=== PATIENT | female | born 1940 | race American Indian/Alaskan Native ===

== ENCOUNTER 2022-03-25 18:07 | Inpatient (IN) | payer MEDICARE ==
[2022-03-25] MEDS ORDERED: SODIUM CHLORIDE 0.9% 1000 ML 1,000 ML IV ONE (18:17)
--- NOTE | 2022-03-25 18:23 | Emergency Department Report ---
HPI - General Time Seen by Provider: 03/25/22 18:17 - HPI HPI: 81-year-old -Prydeinig female presents to the emergency department via EMS from home with altered mental status and concern for possible stroke. The patient was last known to be at her baseline last night around 9 PM when she was talking to her son. They did a forced entry around 4:45 PM and found her laying on the ground unresponsive. At the time of arrival to the emergency department she is awake but unresponsive with a right-sided gaze preference. She is seen moving her extremities to some extent but not following commands. EMS said that she initially had a blood sugar of 500. She is known to be a diabetic. She has never been to this emergency department previously and is currently a poor his ronny secondary to her current medical conditions. ED Review of Systems ROS: Stated complaint: STROKE/HYPERGLYCEMIA Other details as noted in HPI Comment: Unobtainable due to pts medical conditions Physical Exam - Physical Exam Physical Exam: GENERAL: The patient is ill-appearing and unresponsive. HENT: Normocephalic. Atraumatic. Patient has moist mucous membranes. EYES: Right-sided gaze preference. Pupils equal reactive to light bilaterally. NECK: Supple. Trachea is midline. CHEST/LUNGS: Clear to auscultation. There is no respiratory distress noted. HEART/CARDIOVASCULAR: Regular. There is mild to moderate tachycardia. There is no murmur. ABDOMEN: Abdomen is soft, nontender. Patient has normal bowel sounds. There is no abdominal distention. SKIN: Skin is warm and dry. NEURO: Patient is awake but otherwise confused and not following commands. MUSCULOSKELETAL: There is no obvious deformity. ED Course - Consultations Consultation #1: 03/25/22 19:05 I spoke to the telemetry neurologist on-call, Dr. Mikaela Cardenas, and her full evaluation and recommendations are in the chart. She agrees that the patient is not a tPA candidate as last known well time was 9 PM last night. The patient is still within the window for thrombectomy and she agrees with the plan for CT angiography of the head and neck. If the patient has a large vessel occlusion, then the patient will need to be transferred for thrombectomy. If no LVO, then the patient can be admitted to this hospital. If no large vessel occlusion, the differential also includes seizure, metabolic encephalopathy, versus other. ED Medical Decision Making - Lab Data Result diagrams: 03/25/22 18:24 03/25/22 20:02 Lab Results 03/25/22 03/25/22 03/25/22 Range/Units 18:24 18:24 18:24 WBC 14.0 H (4.5-11.0) K/mm3 RBC 5.15 H (3.65-5.03) M/mm3 Hgb 13.6 (10.1-14.3) gm/dl Hct 41.1 (30.3-42.9) % MCV 80 (79-97) fl MCH 26 L (28-32) pg MCHC 33 (30-34) % RDW 18.4 H (13.2-15.2) % Plt Count 268 (140-440) K/mm3 Lymph % (Auto) 5.9 L (13.4-35.0) % Drew % (Auto) 3.5 (0.0-7.3) % Eos % (Auto) 0.0 (0.0-4.3) % Baso % (Auto) 0.8 (0.0-1.8) % Lymph # (Auto) 0.8 L (1.2-5.4) K/mm3 Drew # (Auto) 0.5 (0.0-0.8) K/mm3 Eos # (Auto) 0.0 (0.0-0.4) K/mm3 Baso # (Auto) 0.1 (0.0-0.1) K/mm3 Seg Neutrophils % 89.8 H (40.0-70.0) % Seg Neutrophils # 12.6 H (1.8-7.7) K/mm3 PT 14.1 (12.2-14.9) Sec. INR 0.98 (0.87-1.13) APTT 24.7 (24.2-36.6) Sec. Thrombin Time 16.8 (15.1-19.6) Sec. VBG pH (7.320-7.420) Sodium 138 (137-145) mmol/L Potassium 4.6 (3.6-5.0) mmol/L Chloride 97.1 L (98-107) mmol/L Carbon Dioxide 14 L (22-30) mmol/L Anion Gap 32 mmol/L BUN 23 H (7-17) mg/dL Creatinine 1.9 H (0.6-1.2) mg/dL Estimated GFR 25 ml/min BUN/Creatinine Ratio 12 % Glucose 552 H* (65-100) mg/dL Ketones Quantitative (Negative) Calcium 11.1 H (8.4-10.2) mg/dL Phosphorus (2.5-4.5) mg/dL Magnesium (1.7-2.3) mg/dL Total Bilirubin 0.80 (0.1-1.2) mg/dL AST 32 (5-40) units/L ALT 17 (7-56) units/L Alkaline Phosphatase 72 (35-129) units/L Ammonia (25-60) umol/L Total Creatine Kinase 331 H (30-135) units/L CK-MB (CK-2) 4.4 H (0.0-4.0) ng/mL CK-MB (CK-2) Rel Index 1.3 (0-4) Troponin T 0.068 H (0.00-0.029) ng/mL Total Protein 7.6 (6.3-8.2) g/dL Albumin 4.6 (3.9-5) g/dL Albumin/Globulin Ratio 1.5 % Triglycerides 190 H (2-149) mg/dL Cholesterol 189 (50-199) mg/dL LDL Cholesterol Direct 79 (50-130) mg/dL HDL Cholesterol 94 H (40-59) mg/dL Cholesterol/HDL Ratio 2.01 % Plasma/Serum Alcohol (0-0.07) % Blood Type Antibody Screen 03/25/22 03/25/22 03/25/22 Range/Units 18:24 18:24 18:24 WBC (4.5-11.0) K/mm3 RBC (3.65-5.03) M/mm3 Hgb (10.1-14.3) gm/dl Hct (30.3-42.9) % MCV (79-97) fl MCH (28-32) pg MCHC (30-34) % RDW (13.2-15.2) % Plt Count (140-440) K/mm3 Lymph % (Auto) (13.4-35.0) % Drew % (Auto) (0.0-7.3) % Eos % (Auto) (0.0-4.3) % Baso % (Auto) (0.0-1.8) % Lymph # (Auto) (1.2-5.4) K/mm3 Drew # (Auto) (0.0-0.8) K/mm3 Eos # (Auto) (0.0-0.4) K/mm3 Baso # (Auto) (0.0-0.1) K/mm3 Seg Neutrophils % (40.0-70.0) % Seg Neutrophils # (1.8-7.7) K/mm3 PT (12.2-14.9) Sec. INR (0.87-1.13) APTT (24.2-36.6) Sec. Thrombin Time (15.1-19.6) Sec. VBG pH (7.320-7.420) Sodium (137-145) mmol/L Potassium (3.6-5.0) mmol/L Chloride (98-107) mmol/L Carbon Dioxide (22-30) mmol/L Anion Gap mmol/L BUN (7-17) mg/dL Creatinine (0.6-1.2) mg/dL Estimated GFR ml/min BUN/Creatinine Ratio % Glucose (65-100) mg/dL Ketones Quantitative (Negative) Calcium (8.4-10.2) mg/dL Phosphorus (2.5-4.5) mg/dL Magnesium (1.7-2.3) mg/dL Total Bilirubin (0.1-1.2) mg/dL AST (5-40) units/L ALT (7-56) units/L Alkaline Phosphatase (35-129) units/L Ammonia 12.0 L (25-60) umol/L Total Creatine Kinase (30-135) units/L CK-MB (CK-2) (0.0-4.0) ng/mL CK-MB (CK-2) Rel Index (0-4) Troponin T (0.00-0.029) ng/mL Total Protein (6.3-8.2) g/dL Albumin (3.9-5) g/dL Albumin/Globulin Ratio % Triglycerides (2-149) mg/dL Cholesterol (50-199) mg/dL LDL Cholesterol Direct (50-130) mg/dL HDL Cholesterol (40-59) mg/dL Cholesterol/HDL Ratio % Plasma/Serum Alcohol < 0.01 (0-0.07) % Blood Type A POSITIVE Antibody Screen Negative 03/25/22 03/25/22 03/25/22 Range/Units 20:02 20:02 20:02 WBC (4.5-11.0) K/mm3 RBC (3.65-5.03) M/mm3 Hgb (10.1-14.3) gm/dl Hct (30.3-42.9) % MCV (79-97) fl MCH (28-32) pg MCHC (30-34) % RDW (13.2-15.2) % Plt Count (140-440) K/mm3 Lymph % (Auto) (13.4-35.0) % Drew % (Auto) (0.0-7.3) % Eos % (Auto) (0.0-4.3) % Baso % (Auto) (0.0-1.8) % Lymph # (Auto) (1.2-5.4) K/mm3 Drew # (Auto) (0.0-0.8) K/mm3 Eos # (Auto) (0.0-0.4) K/mm3 Baso # (Auto) (0.0-0.1) K/mm3 Seg Neutrophils % (40.0-70.0) % Seg Neutrophils # (1.8-7.7) K/mm3 PT (12.2-14.9) Sec. INR (0.87-1.13) APTT (24.2-36.6) Sec. Thrombin Time (15.1-19.6) Sec. VBG pH 7.276 L (7.320-7.420) Sodium (137-145) mmol/L Potassium (3.6-5.0) mmol/L Chloride (98-107) mmol/L Carbon Dioxide (22-30) mmol/L Anion Gap mmol/L BUN (7-17) mg/dL Creatinine (0.6-1.2) mg/dL Estimated GFR ml/min BUN/Creatinine Ratio % Glucose (65-100) mg/dL Ketones Quantitative Moderate (Negative) Calcium (8.4-10.2) mg/dL Phosphorus 4.20 (2.5-4.5) mg/dL Magnesium 1.40 L (1.7-2.3) mg/dL Total Bilirubin (0.1-1.2) mg/dL AST (5-40) units/L ALT (7-56) units/L Alkaline Phosphatase (35-129) units/L Ammonia (25-60) umol/L Total Creatine Kinase (30-135) units/L CK-MB (CK-2) (0.0-4.0) ng/mL CK-MB (CK-2) Rel Index (0-4) Troponin T (0.00-0.029) ng/mL Total Protein (6.3-8.2) g/dL Albumin (3.9-5) g/dL Albumin/Globulin Ratio % Triglycerides (2-149) mg/dL Cholesterol (50-199) mg/dL LDL Cholesterol Direct (50-130) mg/dL HDL Cholesterol (40-59) mg/dL Cholesterol/HDL Ratio % Plasma/Serum Alcohol (0-0.07) % Blood Type Antibody Screen 03/25/22 Range/Units 20:02 WBC (4.5-11.0) K/mm3 RBC (3.65-5.03) M/mm3 Hgb (10.1-14.3) gm/dl Hct (30.3-42.9) % MCV (79-97) fl MCH (28-32) pg MCHC (30-34) % RDW (13.2-15.2) % Plt Count (140-440) K/mm3 Lymph % (Auto) (13.4-35.0) % Drew % (Auto) (0.0-7.3) % Eos % (Auto) (0.0-4.3) % Baso % (Auto) (0.0-1.8) % Lymph # (Auto) (1.2-5.4) K/mm3 Drew # (Auto) (0.0-0.8) K/mm3 Eos # (Auto) (0.0-0.4) K/mm3 Baso # (Auto) (0.0-0.1) K/mm3 Seg Neutrophils % (40.0-70.0) % Seg Neutrophils # (1.8-7.7) K/mm3 PT (12.2-14.9) Sec. INR (0.87-1.13) APTT (24.2-36.6) Sec. Thrombin Time (15.1-19.6) Sec. VBG pH (7.320-7.420) Sodium 138 (137-145) mmol/L Potassium 4.6 (3.6-5.0) mmol/L Chloride 98.0 (98-107) mmol/L Carbon Dioxide 14 L (22-30) mmol/L Anion Gap 31 mmol/L BUN 24 H (7-17) mg/dL Creatinine 2.0 H (0.6-1.2) mg/dL Estimated GFR 24 ml/min BUN/Creatinine Ratio 12 % Glucose 536 H* (65-100) mg/dL Ketones Quantitative (Negative) Calcium 10.5 H (8.4-10.2) mg/dL Phosphorus (2.5-4.5) mg/dL Magnesium (1.7-2.3) mg/dL Total Bilirubin (0.1-1.2) mg/dL AST (5-40) units/L ALT (7-56) units/L Alkaline Phosphatase (35-129) units/L Ammonia (25-60) umol/L Total Creatine Kinase (30-135) units/L CK-MB (CK-2) (0.0-4.0) ng/mL CK-MB (CK-2) Rel Index (0-4) Troponin T (0.00-0.029) ng/mL Total Protein (6.3-8.2) g/dL Albumin (3.9-5) g/dL Albumin/Globulin Ratio % Triglycerides (2-149) mg/dL Cholesterol (50-199) mg/dL LDL Cholesterol Direct (50-130) mg/dL HDL Cholesterol (40-59) mg/dL Cholesterol/HDL Ratio % Plasma/Serum Alcohol (0-0.07) % Blood Type Antibody Screen - EKG Data -: EKG Interpreted by Me EKG shows normal: axis, intervals (Slightly prolonged CT interval), QRS complexes, ST-T waves (Nonspecific ST-T waves) Rate: tachycardia (123 bpm) - EKG Data When compared to previous EKG there are: previous EKG unavailable Interpretation: other (Ectopic atrial tachycardia 123 bpm, normal axis, slightly prolonged CT interval, nonspecific ST-T waves. No ST elevation [place].) - Radiology Data Radiology results: report reviewed, image reviewed interpreted by me: Chest x-ray does not show any acute process. There are no pleural effusions, obvious pneumonia and there is no pneumothorax. CT head/brain wo con INDICATION / CLINICAL INFORMATION: 81 years Female; Stroke symptoms. TECHNIQUE: Routine CT head without contrast. All CT scans at this location are performed using CT dose reduction for ALARA by means of automated exposure control. COMPARISON: None. 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 There is prominence of the ventricular system which may be out of proportion to the degree of cerebral atrophy with relative effacement of the sulci near the vertex and correlation be needed regarding normal pressure hydrocephalus. There is no clear CT evidence of acute intracranial hemorrhage or significant mass effect. ORBITS: No significant abnormality of visualized orbits. SINUSES / MASTOIDS: No significant abnormality in the visualized paranasal sinuses or mastoid air cells. CRANIOCERVICAL JUNCTI ON: No significant abnormality. ADDITIONAL FINDINGS: None. IMPRESSION: 1. 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 2. There is prominence of the ventricular system which may be mildly out of proportion to the degree of cerebral atrophy and correlation would be needed regarding normal pressure hydrocephalus as well as given history of unspecified "stroke symptoms". CT angio neck INDICATION / CLINICAL INFORMATION: 81 years Female; stroke sx 100ml of [id number]. TECHNIQUE: Thin cut axial images obtained through the head during IV bolus contrast administration. Sagittal, coronal, and 3 plane MIP reconstructions performed by the technologist. NASCET type criteria used evaluate stenoses. All CT scans at this location are performed using CT dose reduction for ALARA by means of automated exposure control. COMPARISON: None available. FINDINGS: CAROTID ARTERIES: There are small foci of atherosclerotic calcification involving carotid bifurcations bilaterally. However, there is no significant stenosis involving cervical carotid arteries by NASCET criteria. VERTEBRAL ARTERIES: The vertebral arteries also demonstrate appropriate caliber without significant focal narrowing at. ARCH: There is no significant stenosis involving origins of the arch vessels. ADDITIONAL FINDINGS: Remainder of the surrounding soft tissues are grossly normal. IMPRESSION: There is no CTA evidence of significant stenosis involving cervical carotid or vertebral arteries by NASCET criteria. CT angio head INDICATION / CLINICAL INFORMATION: 81 years Female; stroke sx 100ml of [id number]. TECHNIQUE: Thin cut axial images obtained through the head during IV bolus contrast administration. Sagittal, coronal, and 3 plane MIP reconstructions performed by the technologist. NASCET type criteria used evaluate stenoses. Automated exposure control utilized for radiation reduction purposes. COMPARISON: None available. FINDINGS: INTERNAL CAROTID ARTERIES: There is no significant stenosis involving intracranial ICAs by NASCET criteria. VERTEBROBASILAR SYSTEM: The vertebrobasilar system also demonstrate appropriate caliber without significant focal narrowing CEREBRAL ARTERIES: The proximal cerebral arteries and adjacent branches appear to demonstrate appropriate caliber without evidence of significant focal stenosis or large vessel occlusion. ANEURYSM: None identified. ADDITIONAL FINDINGS: The right transverse and sigmoid sinuses as well as the superior sagittal sinuses opacify with contrast. There is nonopacification of the left sigmoid sinus which may reflect developmental variant or possibly related to the timing bolus; correlation be needed regarding any concern for thrombus given history of unspecified "stroke symptoms". IMPRESSION: There is no CTA evidence of large vessel occlusion amenable to endovascular treatment and correlation be needed regarding history of unspecified "stroke symptoms". There is nonopacification of the left sigmoid sinus as described. - Medical Decision Making This patient presents to the emergency department via EMS from home after she was found unresponsive. Last known well time was about 9 PM last night. Therefore, the patient is not a tPA candidate but still could be a thrombectomy candidate if there is evidence of an LVO. On examination she has a right-sided gaze preference, is aphasic, not following commands. A code stroke was initiated and the patient was seen by the telemedicine neurologist Dr. Cardenas, who is full recommendations are in the chart. CT head without contrast does not show any hemorrhage, large vessel occlusion, or any other acute process. CT angiography of the head and neck also did not show any acute process including any large vessel occlusion, high-grade stenosis patient's labs are consistent with diabetic ketoacidosis with a blood sugar of about 550, pH of 7.27, bicarb of 14, and labs also show renal insufficiency with a GFR of 25 and a slightly elevated troponin level. The patient has been given IV fluid resuscitation and started on an insulin drip. EKG does not show any morphology consistent with ST elevation myocardial infarction. Chest x-ray does not show any pneumonia, pleural effusions, pneumothorax, widened mediastinum, or any other acute process. I spoke to the etymology teacher on-call, Dr. Charles Head, who is excepted the patient to the ICU. The patient will be admitted by Dr. Zhao. Critical Care Time: Yes Critical care time in (mins) excluding proc time.: 35 Critical care attestation.: If time is entered above; I have spent that time in minutes in the direct care of this critically ill patient, excluding procedure time. Critical care time was spent on this patient in doing her initial evaluation, multiple reevaluations, ordering and interpretation of labs and imaging, discussion with the telemedicine neurologist, IV fluid resuscitation, insulin drip for DKA. Critical Care Time: 35 minutes ED Disposition Clinical Impression: Metabolic encephalopathy, Stroke-like symptoms, Renal insufficiency, Elevated troponin Diabetic ketoacidosis Qualifiers: Diabetes mellitus type: type 1 Diabetes mellitus complication detail: without coma Qualified Code(s): E10.10 - Type 1 diabetes mellitus with ketoacidosis without coma Hypertension Qualifiers: Hypertension type: primary hypertension Qualified Code(s): I10 - Essential (primary) hypertension Disposition: 09 ADMITTED INPATIENT Is pt being admited?: Yes Condition: Serious Instructions: Diabetic Ketoacidosis (ED), Hypertension (ED) Time of Disposition: 22:01
--- NOTE | 2022-03-25 18:55 | Cat Scan Report ---
CT head/brain wo con INDICATION / CLINICAL INFORMATION: 81 years Female; Stroke symptoms. TECHNIQUE: Routine CT head without contrast. All CT scans at this location are performed using CT dos e reduction for ALARA by means of automated exposure control. COMPARISON: None. 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 There is prominence of the ventricular system which may be out of proportio n to the degree of cerebral atrophy with relative effacement of the sulci near the vertex and correla tion be needed regarding normal pressure hydrocephalus. There is no clear CT evidence of acute intrac ranial hemorrhage or significant mass effect. ORBITS: No significant abnormality of visualized orbits. SINUSES / MASTOIDS: No significant abnormality in the visualized paranasal sinuses or mastoid air toi ls. CRANIOCERVICAL JUNCTION: No significant abnormality. ADDITIONAL FINDINGS: None. IMPRESSION: 1. 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 2. There is prominence of the ventricular system which may be mildly out of proportion to the degree of cerebral atrophy and correlation would be needed regarding normal pressure hydrocephalus as well a s given history of unspecified "stroke symptoms". Signer Name: Grzegorz Quispe MD Signed: 03/25/2022 6:50 PM Workstation Name: [id number]
--- NOTE | 2022-03-25 19:03 | Emergency Department Report ---
Blank Doc - Documentation Documentation: [facility] Consult Note # Demographics Consult Type: Acute Stroke Level 2 (4.5-24 hrs) Patient Location: Emergency Room First Name: Justine Last Name: Rasta Gender: Female Facility: [facility] Time of Initial Page (Eastern Time): 03/25/2022, 18:20 Time of Return Call ( Time): 03/25/2022, 18:20 # HPI History: pt last well last night around 2100, found today with right hahn gaze and weakness # Scores Level of Consciousness 1a: [0] = Alert; keenly responsive LOC Questions 1b: [2] = Answers neither correctly LOC Commands 1c: [2] = Performs neither correctly Best Gaze 2: [2] = Forced deviation Visual 3: [0] = No visual loss Facial Palsy 4: [2] = Partial paralysis Motor Arm Left 5a: [4] = No movement Motor Arm Right 5b: [2] = Some effort against gravity Motor Leg Left 6a: [4] = No movement Motor Leg Right 6b: [4] = No movement Limb Ataxia 7: [0] = Absent Sensory 8: [2] = Severe to total sensory loss Best Language 9: [3] = Mute Dysarthria 10: [2] = Severe dysarthria Extinction and Inattention 11: [2] = Profound margareth-inattention or extinction to more than one modality NIHSS Total: 31 # Data Head CT: no bleed preliminarily reviewed by me, please refer to radiology read for official reading CTA Head: pending # Assessment Impression: Ischemic Stroke (Acute) mimic possible such as seizure or otehr # Plan Thrombolytic/Intervention: Possible IA candidate Thrombolytic Exclusion: > 4.5 hours Possible IA Candidate: signs and symptoms of LVO CTA pending Imaging: (urgency: STAT): CT Angiogram Head and CT Angiogram Neck AND call back with results if abnormal Other: I have discussed my recommendations with the referring provider Additional Recommendations: STAT EEG if CTA without LVO transfer for consideration for IR if CTA with LVO
[2022-03-25 19:21] LABS: Basophils # (Auto) 0.1 K/mm3 (0.0-0.1); Basophils % (Auto) 0.8 % (0.0-1.8); Hematocrit 41.1 % (30.3-42.9); Hemoglobin 13.6 gm/dl (10.1-14.3); Lymphocytes # (Auto) 0.8 K/mm3 (1.2-5.4); Lymphocytes % (Auto) 5.9 % (13.4-35.0); Mean Corpuscular HGB Conc 33 % (30-34); Mean Corpuscular Volume 80 fl (79-97); Monocytes # (Auto) 0.5 K/mm3 (0.0-0.8); Monocytes % (Auto) 3.5 % (0.0-7.3); Platelet Count 268 K/mm3 (140-440); Red Blood Count 5.15 M/mm3 (3.65-5.03); Red Cell Distribution Width 18.4 % (13.2-15.2)
--- NOTE | 2022-03-25 19:21 | Cat Scan Report ---
CT angio neck INDICATION / CLINICAL INFORMATION: 81 years Female; stroke sx 100ml of [id number]. TECHNIQUE: Thin cut axial images obtained through the head during IV bolus contrast administration. S agittal, coronal, and 3 plane MIP reconstructions performed by the technologist. NASCET type criteria used evaluate stenoses. All CT scans at this location are performed using CT dose reduction for ALAR A by means of automated exposure control. COMPARISON: None available. FINDINGS: CAROTID ARTERIES: There are small foci of atherosclerotic calcification involving carotid bifurcation s bilaterally. However, there is no significant stenosis involving cervical carotid arteries by NASCE T criteria. VERTEBRAL ARTERIES: The vertebral arteries also demonstrate appropriate caliber without significant f ocal narrowing at. ARCH: There is no significant stenosis involving origins of the arch vessels. ADDITIONAL FINDINGS: Remainder of the surrounding soft tissues are grossly normal. IMPRESSION: There is no CTA evidence of significant stenosis involving cervical carotid or vertebral arteries by NASCET criteria. Signer Name: Grzegorz Quispe MD Signed: 03/25/2022 7:16 PM Workstation Name: [id number]
--- NOTE | 2022-03-25 19:23 | XRay Report ---
CHEST 1 VIEW INDICATION / CLINICAL INFORMATION: AMS. Code stroke COMPARISON: None available. FINDINGS: SUPPORT DEVICES: None. HEART / MEDIASTINUM: No significant abnormality. LUNGS / PLEURA: No significant pulmonary or pleural abnormality. No pneumothorax. ADDITIONAL FINDINGS: No significant additional findings. IMPRESSION: 1. No acute findings. Signer Name: Cristobal Mayen MD Signed: 03/25/2022 7:19 PM Workstation Name: [id number]
[2022-03-25] MEDS ORDERED: levETIRAcetam 1000 MG/NS 0.75% 1,000 MG/100 ML BAG IV ONE (19:27)
--- NOTE | 2022-03-25 19:27 | Cat Scan Report ---
CT angio head INDICATION / CLINICAL INFORMATION: 81 years Female; stroke sx 100ml of [id number]. TECHNIQUE: Thin cut axial images obtained through the head during IV bolus contrast administration. S agittal, coronal, and 3 plane MIP reconstructions performed by the technologist. NASCET type criteria used evaluate stenoses. Automated exposure control utilized for radiation reduction purposes. COMPARISON: None available. FINDINGS: INTERNAL CAROTID ARTERIES: There is no significant stenosis involving intracranial ICAs by NASCET cri teria. VERTEBROBASILAR SYSTEM: The vertebrobasilar system also demonstrate appropriate caliber without signi ficant focal narrowing CEREBRAL ARTERIES: The proximal cerebral arteries and adjacent branches appear to demonstrate appropr iate caliber without evidence of significant focal stenosis or large vessel occlusion. ANEURYSM: None identified. ADDITIONAL FINDINGS: The right transverse and sigmoid sinuses as well as the superior sagittal sinuse s opacify with contrast. There is nonopacification of the left sigmoid sinus which may reflect develo pmental variant or possibly related to the timing bolus; correlation be needed regarding any concern for thrombus given history of unspecified "stroke symptoms". IMPRESSION: There is no CTA evidence of large vessel occlusion amenable to endovascular treatment and correlation be needed regarding history of unspecified "stroke symptoms". There is nonopacification of the left sigmoid sinus as described. Signer Name: Grzegorz Quispe MD Signed: 03/25/2022 7:23 PM Workstation Name: [id number]
[2022-03-25 19:44] LABS: INR 0.98 (0.87-1.13); Partial Thromboplastin Time 24.7 Sec. (24.2-36.6)
[2022-03-25 19:51] LABS: Thrombin Time 16.8 Sec. (15.1-19.6)
[2022-03-25 19:56] LABS: Calcium 11.1 mg/dL (8.4-10.2)
[2022-03-25 20:42] LABS: Creatine Kinase MB 4.4 ng/mL (0.0-4.0)
[2022-03-25 20:43] LABS: Albumin 4.6 g/dL (3.9-5)
[2022-03-25 21:05] LABS: Chol/HDL Ratio 2.01 %
[2022-03-25 21:18] LABS: Calcium 10.5 mg/dL (8.4-10.2)
[2022-03-25] MEDS ORDERED: MAGNESIUM SULFATE 1 GM in SODIUM CHLORIDE 0.9% 50 ML IV ONE (21:32)
[2022-03-25] MEDS: INSULIN REGULAR, HUMAN 100 UNITS in SODIUM CHLORIDE 0.9% 99 ML IV SCH (22:00)
[2022-03-25] MEDS ORDERED: ACETAMINOPHEN 325 MG TAB PO PRN (23:01)
[2022-03-25] MEDS ORDERED: ONDANSETRON 4 MG/2 ML INJ IV PRN (23:01)
[2022-03-25] MEDS ORDERED: MORPHINE 4 MG/1 ML INJ IV PRN (23:01)
[2022-03-25] MEDS ORDERED: ALBUTEROL 2.5 MG/3 ML NEBU IH PRN (23:01)
[2022-03-25] MEDS ORDERED: MORPHINE 2 MG/1 ML INJ IV PRN (23:01)
[2022-03-25 23:09] LABS: Calcium 10.2 mg/dL (8.4-10.2)
--- NOTE | 2022-03-25 23:14 | History and Physical Report ---
History of Present Illness Date of examination: 03/25/22 Date of admission: 03/25/22 Chief complaint: Hyperglycemia Strokelike symptom History of present illness: 81-year-old -[place] female with history of diabetic was brought to the emergency department via EMS from home with altered mental status and concern for possible stroke. The patient was last known to be at her baseline last night around 9 PM when she was talking to her son. They did a forced entry around 4:45 PM and found her laying on the ground unresponsive. At the time of arrival to the emergency department she is awake but unresponsive with a right- sided gaze preference. She is seen moving her extremities to some extent but not following commands. EMS said that she initially had a blood sugar of 500. Initial CT scan of the head shows no acute intracranial abnormality.spoke to the telemetry neurologist on-call, Dr. Mikeala Cardenas, and her full evaluation and recommendations are in the chart. She agrees that the patient is not a tPA candidate as last known well time was 9 PM last night. In the emergency room patient is found to have DKA.'s were going to admit the patient we will put the patient insulin drip and IV fluid will consult critical care evaluation Past History Past Medical History: diabetes Past Surgical History: No surgical history Social history: no significant social history Family history: diabetes Medications and Allergies Allergies Allergy/AdvReac Type Severity Reaction Status Date / Time Penicillins Allergy Anaphylaxis Verified 03/25/22 18:41 Active Meds: Active Medications Insulin Human Regular 100 (units/ Sodium Chloride) 100 mls @ 1 mls/hr IV TITR [facility]; Protocol Last Admin: 03/25/22 22:00 Dose: 8 units/hr, 8 mls/hr Review of Systems Constitutional: fatigue, weakness, malaise, lethargy, other (Altered mental status) Exam - Constitutional Vitals: Temp Pulse Resp BP Pulse Ox 98.1 F 122 H 21 179/78 100 03/25/22 19:39 03/25/22 19:39 03/25/22 19:39 03/25/22 19:39 03/25/22 19:39 General appearance: Present: no acute distress, well-nourished - EENT Eyes: Present: PERRL ENT: hearing intact, clear oral mucosa - Neck Neck: Present: supple, normal ROM - Respiratory Respiratory effort: normal Respiratory: bilateral: diminished - Cardiovascular Heart Sounds: Present: S1 & S2. Absent: rub, click - Extremities Extremities: pulses symmetrical, No edema Peripheral Pulses: within normal limits - Abdominal General gastrointestinal: Present: soft, non-tender, non-distended, normal bowel sounds Female genitourinary: Present: normal - Integumentary Integumentary: Present: clear, warm, dry - Musculoskeletal Musculoskeletal: gait normal, strength equal bilaterally - Psychiatric Psychiatric: appropriate mood/affect, intact judgment & insight - Neurologic Neurologic: CNII-XII intact, moves all extremities HEART Score - HEART Score Troponin: Troponin T 0.068 ng/mL (0.00-0.029) H 03/25/22 18:24 Results - Labs CBC & Chem 7: 03/25/22 18:24 03/25/22 20:02 Labs: Laboratory Last Values WBC 14.0 K/mm3 (4.5-11.0) H 03/25/22 18:24 RBC 5.15 M/mm3 (3.65-5.03) H 03/25/22 18:24 Hgb 13.6 gm/dl (10.1-14.3) 03/25/22 18:24 Hct 41.1 % (30.3-42.9) 03/25/22 18:24 MCV 80 fl (79-97) 03/25/22 18:24 MCH 26 pg (28-32) L 03/25/22 18:24 MCHC 33 % (30-34) 03/25/22 18:24 RDW 18.4 % (13.2-15.2) H 03/25/22 18:24 Plt Count 268 K/mm3 (140-440) 03/25/22 18:24 Lymph % (Auto) 5.9 % (13.4-35.0) L 03/25/22 18:24 Riley % (Auto) 3.5 % (0.0-7.3) 03/25/22 18:24 Eos % (Auto) 0.0 % (0.0-4.3) 03/25/22 18:24 Baso % (Auto) 0.8 % (0.0-1.8) 03/25/22 18:24 Lymph # (Auto) 0.8 K/mm3 (1.2-5.4) L 03/25/22 18:24 Riley # (Auto) 0.5 K/mm3 (0.0-0.8) 03/25/22 18:24 Eos # (Auto) 0.0 K/mm3 (0.0-0.4) 03/25/22 18:24 Baso # (Auto) 0.1 K/mm3 (0.0-0.1) 03/25/22 18:24 Seg Neutrophils % 89.8 % (40.0-70.0) H 03/25/22 18:24 Seg Neutrophils # 12.6 K/mm3 (1.8-7.7) H 03/25/22 18:24 PT 14.1 Sec. (12.2-14.9) 03/25/22 18:24 INR 0.98 (0.87-1.13) 03/25/22 18:24 APTT 24.7 Sec. (24.2-36.6) 03/25/22 18:24 Thrombin Time 16.8 Sec. (15.1-19.6) 03/25/22 18:24 VBG pH 7.276 (7.320-7.420) L 03/25/22 20:02 Sodium 138 mmol/L (137-145) 03/25/22 20:02 Potassium 4.6 mmol/L (3.6-5.0) 03/25/22 20:02 Chloride 98.0 mmol/L (98-107) 03/25/22 20:02 Carbon Dioxide 14 mmol/L (22-30) L 03/25/22 20:02 Anion Gap 31 mmol/L 03/25/22 20:02 BUN 24 mg/dL (7-17) H 03/25/22 20:02 Creatinine 2.0 mg/dL (0.6-1.2) H 03/25/22 20:02 Estimated GFR 31 ml/min 03/25/22 22:31 BUN/Creatinine Ratio 13 % 03/25/22 22:31 Glucose 536 mg/dL (65-100) H* 03/25/22 20:02 Ketones Quantitative Moderate (Negative) 03/25/22 20: Calcium 10.5 mg/dL (8.4-10.2) H 03/25/22 20:02 Phosphorus 4.20 mg/dL (2.5-4.5) 03/25/22 20:02 Magnesium 1.40 mg/dL (1.7-2.3) L 03/25/22 20:02 Total Bilirubin 0.80 mg/dL (0.1-1.2) 03/25/22 18:24 AST 32 units/L (5-40) 03/25/22 18:24 ALT 17 units/L (7-56) 03/25/22 18:24 Alkaline Phosphatase 72 units/L (35-129) 03/25/22 18:24 Ammonia 12.0 umol/L (25-60) L 03/25/22 18:24 Total Creatine Kinase 331 units/L (30-135) H 03/25/22 18:24 CK-MB (CK-2) 4.4 ng/mL (0.0-4.0) H 03/25/22 18:24 CK-MB (CK-2) Rel Index 1.3 (0-4) 03/25/22 18:24 Troponin T 0.068 ng/mL (0.00-0.029) H 03/25/22 18:24 Total Protein 7.6 g/dL (6.3-8.2) 03/25/22 18:24 Albumin 4.6 g/dL (3.9-5) 03/25/22 18:24 Albumin/Globulin Ratio 1.5 % 03/25/22 18:24 Triglycerides 190 mg/dL (2-149) H 03/25/22 18:24 Cholesterol 189 mg/dL (50-199) 03/25/22 18:24 LDL Cholesterol Direct 79 mg/dL (50-130) 03/25/22 18:24 HDL Cholesterol 94 mg/dL (40-59) H 03/25/22 18:24 Cholesterol/HDL Ratio 2.01 % 03/25/22 18:24 Plasma/Serum Alcohol < 0.01 % (0-0.07) 03/25/22 18:24 Blood Type A POSITIVE 03/25/22 18:24 Antibody Screen Negative 03/25/22 18:24 - Imaging and Cardiology Chest x-ray: report reviewed CT Scan - head: report reviewed Assessment and Plan VTE prophylaxis?: Chemical Plan of care discussed with patient/family: Yes - Patient Problems (1) Diabetic ketoacidosis Current Visit: Yes Status: Acute Qualifiers: Diabetes mellitus type: type 1 Diabetes mellitus complication detail: without coma Qualified Code(s): E10.10 - Type 1 diabetes mellitus with ketoacidosis without coma Plan to address problem: Admit the patient to the ICU. NPO. Half-normal saline at the rate of 150 cc/h. We will do the serial BMP. Will consult critical care evaluation. Recheck BMP in the morning and diabetic education (2) Stroke-like symptoms Current Visit: Yes Status: Acute Plan to address problem: Aspirin 325 mg p.o. daily. Lipitor 40 mg p.o. daily. We will do the MRI of the brain and MRA of the brain and neck with and without contrast echocardiogram. Consult neurology if needed (3) Elevated troponin Current Visit: Yes Status: Acute Plan to address problem: Aspirin 325 mg p.o. daily. Lipitor 40 mg p.o. daily. Serial cardiac enzymes. Echocardiogram. Consult cardiology if needed (4) Hypertension Current Visit: Yes Status: Acute Qualifiers: Hypertension type: primary hypertension Qualified Code(s): I10 - Essential (primary) hypertension Plan to address problem: Hydralazine 10 mg IV every 6 hours as needed. We will continue the home medication (5) Metabolic encephalopathy Current Visit: Yes Status: Acute Plan to address problem: Metabolic encephalopathy secondary to DKA. Oxygen by nasal cannula 3 L/min. Half-normal saline at the rate of 150 cc/h. DuoNeb by nebulizer every 4 hours as needed. MRI of the brain with and without contrast. Critical care evaluation (6) Renal insufficiency Current Visit: Yes Status: Acute Plan to address problem: Nephrotoxic drug. Renally dose medication. Half-normal saline at the rate of 150 cc/h. Recheck BMP in the morning (7) DVT prophylaxis Current Visit: Yes Status: Acute Plan to address problem: Paren 5000 units subcu every 12 hours for DVT prophylaxis. Pepcid 20 mg IV every 12 hours for GI prophylaxis. Patient is a full code
[2022-03-25] MEDS ORDERED: INSULIN REGULAR, HUMAN 100 UNITS in SODIUM CHLORIDE 0.9% 99 ML IV SCH (23:45)
[2022-03-25] MEDS ORDERED: SODIUM CHLORIDE 0.45% 1000 ML 1,000 ML IV SCH (23:45)
[2022-03-26 00:05] LABS: Calcium 10.5 mg/dL (8.4-10.2)
[2022-03-26] MEDS: INSULIN REGULAR, HUMAN 100 UNITS in SODIUM CHLORIDE 0.9% 99 ML IV SCH ×4 (00:09→11:01)
[2022-03-26 02:44] LABS: Calcium 10.6 mg/dL (8.4-10.2)
[2022-03-26 04:06] LABS: Calcium 10.9 mg/dL (8.4-10.2)
[2022-03-26] MEDS: IPRATROPIUM/ALBUTEROL SULFATE 3 ML AMPUL.NEB IH SCH ×4 (05:44→20:12)
[2022-03-26] MEDS: D5W/0.45% NACL/KCL 20 MEQ 20 MEQ/1,000 ML BAG IV SCH ×2 (06:42→23:16)
[2022-03-26] MEDS ORDERED: FAMOTIDINE 20 MG/2 ML INJ IV SCH (10:00)
[2022-03-26] MEDS ORDERED: ASPIRIN 325 MG TAB PO SCH (10:00)
--- NOTE | 2022-03-26 11:39 | Consultation ---
History of Present Illness - Reason for Consult Consult date: 03/26/22 Stroke, DKA - History of Present Illness 81 y/o female admitted with stroke like symptoms and DKA. Patient is currently obtunded, will respond to sternal rub and will move head to name call and other sounds. Past History Past Medical History: diabetes Past Surgical History: No surgical history Social history: no significant social history Family history: diabetes Medications and Allergies Allergies Allergy/AdvReac Type Severity Reaction Status Date / Time Penicillins Allergy Anaphylaxis Verified 03/25/22 18:41 Home Medications Medication Instructions Recorded Confirmed Last Taken Type AtorvaSTATin [Lipitor] 10 mg PO QHS 03/26/22 03/26/22 Unknown History DULoxetine [Cymbalta] 30 mg PO QDAY 03/26/22 03/26/22 Unknown History Estrogens, Conjugated [Premarin] 0.9 mg PO QDAY 03/26/22 03/26/22 Unknown History Ferrous Sulfate [Feosol] 325 mg PO QDAY 03/26/22 03/26/22 Unknown History Gabapentin [Neurontin] 100 mg PO QDAY 03/26/22 03/26/22 Unknown History Insulin Glargine [Lantus VIAL] 10 unit SUB-Q QHS 03/26/22 03/26/22 Unknown History amLODIPine [Norvasc] 5 mg PO DAILY 03/26/22 03/26/22 Unknown History carvediloL [Coreg] 25 mg PO BID 03/26/22 03/26/22 Unknown History hydrALAZINE [Apresoline] 50 mg PO BID 03/26/22 03/26/22 Unknown History traMADoL [Ultram] 50 mg PO QDAY 03/26/22 03/26/22 Unknown History Active Meds: Active Medications Acetaminophen (Acetaminophen 325 Mg Tab) 650 mg PO Q4H PRN PRN Reason: Pain MILD(1-3)/Fever >100.5/GUTIERREZ Albuterol (Albuterol 2.5 Mg/3 Ml Nebu) 2.5 mg IH Q3HRT PRN PRN Reason: Shortness Of Breath Albuterol/Ipratropium (Ipratropium/Albuterol Sulfate 3 Ml Ampul.Neb) 1 ampul IH Q6HRT [facility] Last Admin: 03/26/22 05:44 Dose: 1 ampul Aspirin (Aspirin 325 Mg Tab) 325 mg PO QDAY [facility] Atorvastatin Calcium (Atorvastatin 40 Mg Tab) 40 mg PO QHS [facility] Dextrose (Dextrose 50% In Water (25gm) 50 Ml Syringe) 0 ml IV Q30MIN PRN; Pro tocol PRN Reason: Hypoglycemia Famotidine (Famotidine 20 Mg/2 Ml Inj) 20 mg IV DAILY [facility] Heparin Sodium (Porcine) (Heparin 5,000 Unit/1 Ml Vial) 5,000 unit SUB-Q Q12HR [facility] Insulin Human Regular 100 (units/ Sodium Chloride) 100 mls @ 1 mls/hr IV TITR [facility]; Protocol Last Admin: 03/26/22 11:01 Dose: 14 units/hr, 14 mls/hr Sodium Chloride (Nacl 0.45% 1000 Ml) 1,000 mls @ 150 mls/hr IV DIRECT [facility] Potassium Chloride/Dextrose/Sod Cl (D5w/0.45% Nacl/Kcl 20 Meq) 20 meq in 1,000 mls @ 125 mls/hr IV DIRECT [facility] Last Admin: 03/26/22 06:42 Dose: 125 mls/hr Morphine Sulfate (Morphine 2 Mg/1 Ml Inj) 2 mg IV Q4H PRN PRN Reason: Pain, Moderate (4-6) Morphine Sulfate (Morphine 4 Mg/1 Ml Inj) 4 mg IV Q4H PRN PRN Reason: Pain , Severe (7-10) Ondansetron HCl (Ondansetron 4 Mg/2 Ml Inj) 4 mg IV Q8H PRN PRN Reason: Nausea And Vomiting Sodium Chloride (Sodium Chloride 0.9% 10 Ml Flush Syringe) 10 ml IV BID [facility] Sodium Chloride (Sodium Chloride 0.9% 10 Ml Flush Syringe) 10 ml IV PRN PRN PRN Reason: LINE FLUSH Review of Systems ROS unobtainable: due to mental status Exam - Constitutional Vitals: Temp Pulse Resp BP Pulse Ox 98.1 F 102 H 18 156/71 100 03/25/22 19:39 03/26/22 05:44 03/26/22 05:44 03/26/22 05:31 03/26/22 05:31 General appearance: Present: no acute distress, well-nourished - EENT ENT: hearing intact - Neck Neck: Present: supple - Respiratory Respiratory effort: normal Respiratory: bilateral: CTA - Cardiovascular Rhythm: regular Heart Sounds: Present: S1 & S2 Results - Labs CBC & Chem 7: 03/25/22 18:24 03/26/22 07:00 Labs: Abnormal lab results 03/25/22 03/25/22 03/25/22 Range/Units 18:24 18:24 18:24 WBC 14.0 H (4.5-11.0) K/mm3 RBC 5.15 H (3.65-5.03) M/mm3 MCH 26 L (28-32) pg RDW 18.4 H (13.2-15.2) % Lymph % (Auto) 5.9 L (13.4-35.0) % Lymph # (Auto) 0.8 L (1.2-5.4) K/mm3 Seg Neutrophils % 89.8 H (40.0-70.0) % Seg Neutrophils # 12.6 H (1.8-7.7) K/mm3 VBG pH (7.320-7.420) Sodium (137-145) mmol/L Potassium (3.6-5.0) mmol/L Chloride 97.1 L (98-107) mmol/L Carbon Dioxide 14 L (22-30) mmol/L BUN 23 H (7-17) mg/dL Creatinine 1.9 H (0.6-1.2) mg/dL Glucose 552 H* (65-100) mg/dL POC Glucose (70-105) mg/dL Calcium 11.1 H (8.4-10.2) mg/dL Phosphorus (2.5-4.5) mg/dL Magnesium (1.7-2.3) mg/dL Ammonia 12.0 L (25-60) umol/L Total Creatine Kinase 331 H (30-135) units/L CK-MB (CK-2) 4.4 H (0.0-4.0) ng/mL Troponin T 0.068 H (0.00-0.029) ng/mL Triglycerides 190 H (2-149) mg/dL HDL Cholesterol 94 H (40-59) mg/dL 03/25/22 03/25/22 03/25/22 Range/Units 20:02 20:02 20:02 WBC (4.5-11.0) K/mm3 RBC (3.65-5.03) M/mm3 MCH (28-32) pg RDW (13.2-15.2) % Lymph % (Auto) (13.4-35.0) % Lymph # (Auto) (1.2-5.4) K/mm3 Seg Neutrophils % (40.0-70.0) % Seg Neutrophils # (1.8-7.7) K/mm3 VBG pH 7.276 L (7.320-7.420) Sodium (137-145) mmol/L Potassium (3.6-5.0) mmol/L Chloride (98-107) mmol/L Carbon Dioxide 14 L (22-30) mmol/L BUN 24 H (7-17) mg/dL Creatinine 2.0 H (0.6-1.2) mg/dL Glucose 536 H* (65-100) mg/dL POC Glucose (70-105) mg/dL Calcium 10.5 H (8.4-10.2) mg/dL Phosphorus (2.5-4.5) mg/dL Magnesium 1.40 L (1.7-2.3) mg/dL Ammonia (25-60) umol/L Total Creatine Kinase (30-135) units/L CK-MB (CK-2) (0.0-4.0) ng/mL Troponin T (0.00-0.029) ng/mL Triglycerides (2-149) mg/dL HDL Cholesterol (40-59) mg/dL 03/25/22 03/25/22 03/25/22 Range/Units 22:31 23:07 23:37 WBC (4.5-11.0) K/mm3 RBC (3.65-5.03) M/mm3 MCH (28-32) pg RDW (13.2-15.2) % Lymph % (Auto) (13.4-35.0) % Lymph # (Auto) (1.2-5.4) K/mm3 Seg Neutrophils % (40.0-70.0) % Seg Neutrophils # (1.8-7.7) K/mm3 VBG pH (7.320-7.420) Sodium (137-145) mmol/L Potassium (3.6-5.0) mmol/L Chloride (98-107) mmol/L Carbon Dioxide 12 L (22-30) mmol/L BUN 24 H (7-17) mg/dL Creatinine 1.9 H (0.6-1.2) mg/dL Glucose 514 H* (65-100) mg/dL POC Glucose 384 H (70-105) mg/dL Calcium (8.4-10.2) mg/dL Phosphorus 2.30 L D (2.5-4.5) mg/dL Magnesium (1.7-2.3) mg/dL Ammonia (25-60) umol/L Total Creatine Kinase (30-135) units/L CK-MB (CK-2) (0.0-4.0) ng/mL Troponin T (0.00-0.029) ng/mL Triglycerides (2-149) mg/dL HDL Cholesterol (40-59) mg/dL 03/25/22 03/26/22 03/26/22 Range/Units 23:37 00:06 01:05 WBC (4.5-11.0) K/mm3 RBC (3.65-5.03) M/mm3 MCH (28-32) pg RDW (13.2-15.2) % Lymph % (Auto) (13.4-35.0) % Lymph # (Auto) (1.2-5.4) K/mm3 Seg Neutrophils % (40.0-70.0) % Seg Neutrophils # (1.8-7.7) K/mm3 VBG pH (7.320-7.420) Sodium (137-145) mmol/L Potassium 3.5 L D (3.6-5.0) mmol/L Chloride (98-107) mmol/L Carbon Dioxide 14 L (22-30) mmol/L BUN 24 H (7-17) mg/dL Creatinine 1.9 H (0.6-1.2) mg/dL Glucose 387 H (65-100) mg/dL POC Glucose 334 H 248 H (70-105) mg/dL Calcium 10.5 H (8.4-10.2) mg/dL Phosphorus (2.5-4.5) mg/dL Magnesium (1.7-2.3) mg/dL Ammonia (25-60) umol/L Total Creatine Kinase (30-135) units/L CK-MB (CK-2) (0.0-4.0) ng/mL Troponin T (0.00-0.029) ng/mL Triglycerides (2-149) mg/dL HDL Cholesterol (40-59) mg/dL 03/26/22 03/26/22 03/26/22 Range/Units 01:31 02:13 03:14 WBC (4.5-11.0) K/mm3 RBC (3.65-5.03) M/mm3 MCH (28-32) pg RDW (13.2-15.2) % Lymph % (Auto) (13.4-35.0) % Lymph # (Auto) (1.2-5.4) K/mm3 Seg Neutrophils % (40.0-70.0) % Seg Neutrophils # (1.8-7.7) K/mm3 VBG pH (7.320-7.420) Sodium (137-145) mmol/L Potassium 3.1 L (3.6-5.0) mmol/L Chloride 109.2 H (98-107) mmol/L Carbon Dioxide 16 L (22-30) mmol/L BUN 24 H (7-17) mg/dL Creatinine 1.8 H (0.6-1.2) mg/dL Glucose 212 H (65-100) mg/dL POC Glucose 268 H 179 H (70-105) mg/dL Calcium 10.6 H (8.4-10.2) mg/dL Phosphorus (2.5-4.5) mg/dL Magnesium (1.7-2.3) mg/dL Ammonia (25-60) umol/L Total Creatine Kinase (30-135) units/L CK-MB (CK-2) (0.0-4.0) ng/mL Troponin T (0.00-0.029) ng/mL Triglycerides (2-149) mg/dL HDL Cholesterol (40-59) mg/dL 03/26/22 03/26/22 03/26/22 Range/Units 03:22 04:21 05:25 WBC (4.5-11.0) K/mm3 RBC (3.65-5.03) M/mm3 MCH (28-32) pg RDW (13.2-15.2) % Lymph % (Auto) (13.4-35.0) % Lymph # (Auto) (1.2-5.4) K/mm3 Seg Neutrophils % (40.0-70.0) % Seg Neutrophils # (1.8-7.7) K/mm3 VBG pH (7.320-7.420) Sodium 147 H (137-145) mmol/L Potassium (3.6-5.0) mmol/L Chloride 110.2 H (98-107) mmol/L Carbon Dioxide 20 L (22-30) mmol/L BUN 24 H (7-17) mg/dL Creatinine 1.8 H (0.6-1.2) mg/dL Glucose 195 H (65-100) mg/dL POC Glucose 171 H 221 H (70-105) mg/dL Calcium 10.9 H (8.4-10.2) mg/dL Phosphorus (2.5-4.5) mg/dL Magnesium (1.7-2.3) mg/dL Ammonia (25-60) umol/L Total Creatine Kinase (30-135) units/L CK-MB (CK-2) (0.0-4.0) ng/mL Troponin T (0.00-0.029) ng/mL Triglycerides (2-149) mg/dL HDL Cholesterol (40-59) mg/dL 03/26/22 03/26/22 03/26/22 Range/Units 06:34 07:00 07:57 WBC (4.5-11.0) K/mm3 RBC (3.65-5.03) M/mm3 MCH (28-32) pg RDW (13.2-15.2) % Lymph % (Auto) (13.4-35.0) % Lymph # (Auto) (1.2-5.4) K/mm3 Seg Neutrophils % (40.0-70.0) % Seg Neutrophils # (1.8-7.7) K/mm3 VBG pH (7.320-7.420) Sodium (137-145) mmol/L Potassium (3.6-5.0) mmol/L Chloride (98-107) mmol/L Carbon Dioxide 21 L (22-30) mmol/L BUN 24 H (7-17) mg/dL Creatinine 1.8 H (0.6-1.2) mg/dL Glucose 238 H (65-100) mg/dL POC Glucose 239 H 270 H (70-105) mg/dL Calcium 11.0 H (8.4-10.2) mg/dL Phosphorus (2.5-4.5) mg/dL Magnesium (1.7-2.3) mg/dL Ammonia (25-60) umol/L Total Creatine Kinase (30-135) units/L CK-MB (CK-2) (0.0-4.0) ng/mL Troponin T (0.00-0.029) ng/mL Triglycerides (2-149) mg/dL HDL Cholesterol (40-59) mg/dL 03/26/22 Range/Units 08:48 WBC (4.5-11.0) K/mm3 RBC (3.65-5.03) M/mm3 MCH (28-32) pg RDW (13.2-15.2) % Lymph % (Auto) (13.4-35.0) % Lymph # (Auto) (1.2-5.4) K/mm3 Seg Neutrophils % (40.0-70.0) % Seg Neutrophils # (1.8-7.7) K/mm3 VBG pH (7.320-7.420) Sodium (137-145) mmol/L Potassium (3.6-5.0) mmol/L Chloride (98-107) mmol/L Carbon Dioxide (22-30) mmol/L BUN (7-17) mg/dL Creatinine (0.6-1.2) mg/dL Glucose (65-100) mg/dL POC Glucose 298 H (70-105) mg/dL Calcium (8.4-10.2) mg/dL Phosphorus (2.5-4.5) mg/dL Magnesium (1.7-2.3) mg/dL Ammonia (25-60) umol/L Total Creatine Kinase (30-135) units/L CK-MB (CK-2) (0.0-4.0) ng/mL Troponin T (0.00-0.029) ng/mL Triglycerides (2-149) mg/dL HDL Cholesterol (40-59) mg/dL - Imaging and Cardiology Chest x-ray: image reviewed (clear) Assessment and Plan 81 y/o female with stroke and dKA 1. Continue insulin therapy until Anion Gap is closed 2. Will keep NPO as well. Most likey will need dh if mental status does not improve. 3. No sedative therapy 4. BP control 5. neuro checks. 6. monitor renal function CCT 31 minutes.
[2022-03-26] MEDS: FAMOTIDINE 20 MG/2 ML INJ IV SCH ×2 (12:36→12:44)
[2022-03-26] MEDS: HEPARIN 5,000 UNIT/1 ML VIAL SUB-Q SCH ×2 (12:43→23:16)
[2022-03-26] MEDS: DEXTROSE 50% IN WATER (25GM) 50 ML SYRINGE IV PRN ×2 (14:32→16:06)
[2022-03-26 16:05] LABS: Calcium 10.8 mg/dL (8.4-10.2)
[2022-03-26 17:02] LABS: Bilirubin,Urine NEG (Negative); Blood,Urine MOD (Negative); Color,Urine Yellow (Yellow); Urobilinogen,Urine < 2.0 mg/dL (<2.0)
[2022-03-26] MEDS ORDERED: POTASSIUM CHLORIDE 10 MEQ 10 MEQ/100 ML BAG IV SCH (17:08)
[2022-03-26 17:10] LABS: Granular Casts,Urine 4 /LPF; Mucus,Urine FEW /HPF
--- NOTE | 2022-03-26 17:15 | Progress Note ---
Assessment and Plan Assessment and plan: This is a 81-year-old female with DM admitted with DKA, BOYD, leukocytosis, hypomagnesemia, r/o CVA Neuro: r/o CVA, h/o depression, peripheral neuropathy -Per Teleneurology NIHSS of 31 -Initial CT head showed no acute intracranial abnormality, extensive microvascular angiopathy and possible normal pressure hydrocephalus -CTA head showed no large vessel occlusion -CTA neck showed no significant stenosis involving the cervical carotid or vertebral arteries. -Neurology consulted, appreciate recommendations -Aspirin, Lipitor -Lipid panel noted -Maintain normothermia, euglycemia -Echocardiogram with bubble study pending -MRI brain pending -PT/OT/ST consulted -Permissive hypertension for 24 hours -Hold home cymbalta and gabapentin Cardiac: h/o HTN, HLD -Blood pressure monitoring per protocol -Home antihypertensive regimen: Coreg, hydralazine, amlodipine -Echocardiogram pending -Resume home antihypertensive regimen and adjust as needed if needed Respiratory: NAD -Pulmonary hygiene -Supplemental oxygen as needed -SPO2 monitoring GI: NAD -PPI -N.p.o. for now -CC cardiac diet when able : Hypokalemia, acute kidney injury likely secondary to vasomotor nephropathy, hypophosphatemia, high anion gap metabolic acidosis -Monitor intake and output -Renally dose medications -Avoid nephrotoxic medications -Replace K and Phos -Trend BMP ID: NAD -Infectious disease consulted, appreciate recommendation -f/u blood culture -UA and UC pending -Monitor WBC and temperature curve Endo: DKA, h/o DM -Insulin gtt -BMP per protocol -NPO for now -CC diet when AG closes -LR bolus x1 -SSI and long acting insulin when able -Avoid hypoglycemia Heme: Leukocytosis -Trend CBC -Transfuse hemoglobin less than 7 -SCDs to BLE while in bed The high probability of a clinically significant, sudden or life threatening deterioration of the [endo/neuro] system(s) required my full and direct attention, intervention and personal management. The aggregate critical care time was [60] minutes. This time is in addition to time spent performing reported procedures but includes the following: [x] Data Review and interpretation [x] Patient assessment and monitoring of vital signs [x] Documentation [x] Medication orders and management Disposition Plan: icu Total Time Spent with Patient (Minutes): 60 History Interval history: This is a 81-year-old female with diabetes, HTN, depression who presents to the emergency department with via EMS on 03/25 with concerns of possible stroke with altered mental status. Patient's last known well at her baseline was 03/24 around 9 PM when she was talking to her son. Apparently around 4:45 PM there was forced entry by EMS into her home when she was found on the ground unresponsive and her blood glucose was 500. In the emergency department patient was awake but unresponsive with a right-sided gaze preference. Teleneurology was consulted who assessed initial NIHSS of 31 and stated patient is a possible candidate for tPA if CT angio of head and neck were abnormal and if LVO was found patient will need to be transferred for a thrombectomy. Initial CT head showed no acute intracranial abnormality, extensive microvascular angiopathy and possible normal pressure hydrocephalus, CTA head showed no large vessel occlusion and CTA neck showed no significant stenosis involving the cervical carotid or vertebral arteries. Lab work in the emergency department also r evealed leukocytosis, acute kidney injury, high anion gap Metabolic acidosis, hyperglycemia, hypomagnesemia. Patient was admitted to the hospitalist service with DKA possible CVA. Hospital course to date: 03/26: Patient remains on insulin drip as anion gap is now closed, given LR bolus this afternoon. MRI brain completed. RN to perform straight cath to obtain UA/UC. Instructed to leave Sidhu catheter in place as hospitals are of straight cath kits if urine output greater than 300 mL. Hospitalist Physical - Physical exam Narrative exam: Physical Exam: VITAL SIGNS: Reviewed. GENERAL: The patient appears normally developed, Vital signs as documented. HEAD: No signs of head trauma. EYES: Pupils are equal. Extraocular motions intact. EARS: Hearing intact. MOUTH: Oropharynx is normal. NECK: No adenopathy, no JVD. CHEST: Chest with clear breath sounds bilaterally. No wheezes, rales, or rhonchi. CARDIAC: Regular rate and rhythm. S1 and S2, without murmurs, gallops, or rubs. VASCULAR: No Edema. Peripheral pulses normal and equal in all extremities. ABDOMEN: Soft, non tender and non distended. No rebound or guarding, and no masses palpated. Bowel Sounds normal. MUSCULOSKELETAL: Moves extremities spontaneously NEUROLOGIC EXAM: Opens eyes, moves all extremity spontaneously does not follow commands, left-sided facial droop - Constitutional Vitals: Temp Pulse Resp BP Pulse Ox 98.1 F 101 H 16 172/87 100 03/25/22 19:39 03/26/22 17:00 03/26/22 17:00 03/26/22 17:00 03/26/22 17:00 General appearance: Present: no acute distress, well-nourished HEART Score - HEART Score Troponin: Troponin T 0.068 ng/mL (0.00-0.029) H 03/25/22 18:24 Results - Labs CBC & Chem 7: 03/25/22 18:24 03/26/22 15:04 Labs: Laboratory Last Values WBC 14.0 K/mm3 (4.5-11.0) H 03/25/22 18:24 RBC 5.15 M/mm3 (3.65-5.03) H 03/25/22 18:24 Hgb 13.6 gm/dl (10.1-14.3) 03/25/22 18:24 Hct 41.1 % (30.3-42.9) 03/25/22 18:24 MCV 80 fl (79-97) 03/25/22 18:24 MCH 26 pg (28-32) L 03/25/22 18:24 MCHC 33 % (30-34) 03/25/22 18:24 RDW 18.4 % (13.2-15.2) H 03/25/22 18:24 Plt Count 268 K/mm3 (140-440) 03/25/22 18:24 Lymph % (Auto) 5.9 % (13.4-35.0) L 03/25/22 18:24 [place]kin % (Auto) 3.5 % (0.0-7.3) 03/25/22 18:24 Eos % (Auto) 0.0 % (0.0-4.3) 03/25/22 18:24 Baso % (Auto) 0.8 % (0.0-1.8) 03/25/22 18:24 Lymph # (Auto) 0.8 K/mm3 (1.2-5.4) L 03/25/22 18:24 Pitkin # (Auto) 0.5 K/mm3 (0.0-0.8) 03/25/22 18:24 Eos # (Auto) 0.0 K/mm3 (0.0-0.4) 03/25/22 18:24 Baso # (Auto) 0.1 K/mm3 (0.0-0.1) 03/25/22 18:24 Seg Neutrophils % 89.8 % (40.0-70.0) H 03/25/22 18:24 Seg Neutrophils # 12.6 K/mm3 (1.8-7.7) H 03/25/22 18:24 PT 14.1 Sec. (12.2-14.9) 03/25/22 18:24 INR 0.98 (0.87-1.13) 03/25/22 18:24 APTT 24.7 Sec. (24.2-36.6) 03/25/22 18:24 Thrombin Time 16.8 Sec. (15.1-19.6) 03/25/22 18:24 VBG pH 7.276 (7.320-7.420) L 03/25/22 20:02 Sodium 145 mmol/L (137-145) 03/26/22 15:04 Potassium 3.4 mmol/L (3.6-5.0) L 03/26/22 15:04 Chloride 112.5 mmol/L (98-107) H 03/26/22 15:04 Carbon Dioxide 18 mmol/L (22-30) L 03/26/22 15:04 Anion Gap 18 mmol/L 03/26/22 15:04 BUN 23 mg/dL (7-17) H 03/26/22 15:04 Creatinine 1.5 mg/dL (0.6-1.2) H 03/26/22 15:04 Estimated GFR 40 ml/min 03/26/22 15:04 BUN/Creatinine Ratio 15 % 03/26/22 15:04 Glucose 126 mg/dL (65-100) H 03/26/22 15:04 POC Glucose 69 mg/dL (70-105) L 03/26/22 14:21 Ketones Quantitative Moderate (Negative) 03/25/22 20:02 Calcium 10.8 mg/dL (8.4-10.2) H 03/26/22 15:04 Phosphorus 2.30 mg/dL (2.5-4.5) L D 03/25/22 23:37 Magnesium 2.00 mg/dL (1.7-2.3) 03/25/22 23:37 Total Bilirubin 0.80 mg/dL (0.1-1.2) 03/25/22 18:24 AST 32 units/L (5-40) 03/25/22 18:24 ALT 17 units/L (7-56) 03/25/22 18:24 Alkaline Phosphatase 72 units/L (35-129) 03/25/22 18:24 Ammonia 12.0 umol/L (25-60) L 03/25/22 18:24 Total Creatine Kinase 331 units/L (30-135) H 03/25/22 18:24 CK-MB (CK-2) 4.4 ng/mL (0.0-4.0) H 03/25/22 18:24 CK-MB (CK-2) Rel Index 1.3 (0-4) 03/25/22 18:24 Troponin T 0.068 ng/mL (0.00-0.029) H 03/25/22 18:24 Total Protein 7.6 g/dL (6.3-8.2) 03/25/22 18:24 Albumin 4.6 g/dL (3.9-5) 03/25/22 18:24 Albumin/Globulin Ratio 1.5 % 03/25/22 18:24 Triglycerides 190 mg/dL (2-149) H 03/25/22 18:24 Cholesterol 189 mg/dL (50-199) 03/25/22 18:24 LDL Cholesterol Direct 79 mg/dL (50-130) 03/25/22 18:24 HDL Cholesterol 94 mg/dL (40-59) H 03/25/22 18:24 Cholesterol/HDL Ratio 2.01 % 03/25/22 18:24 Urine Bilirubin Neg (Negative) 03/26/22 16:40 Plasma/Serum Alcohol < 0.01 % (0-0.07) 03/25/22 18:24 Blood Type A POSITIVE 03/25/22 18:24 Antibody Screen Negative 03/25/22 18:24 Active Medications - Current Medications Current Medications: Generic Name Dose Route Start Last Admin Trade Name Freq PRN Reason Stop Dose Admin Acetaminophen 650 mg 03/25/22 23:01 Acetaminophen 325 Mg Tab PO Q4H PRN Pain MILD(1-3)/Fever >100.5/GUTIERREZ Albuterol 2.5 mg 03/25/22 23:01 Albuterol 2.5 Mg/3 Ml Nebu IH Q3HRT PRN Shortness Of Breath Albuterol/Ipratropium 1 ampul 03/26/22 02:00 03/26/22 05:44 Ipratropium/Albuterol Sulfate 3 Ml Ampul.Neb IH 1 ampul Q6HRT YUNIEL Administration Aspirin 325 mg 03/26/22 10:00 03/26/22 12:35 Aspirin 325 Mg Tab PO Not Given QDAY YUNIEL Atorvastatin Calcium 40 mg 03/26/22 22:00 Atorvastatin 40 Mg Tab PO QHS YUNIEL Dextrose 0 ml 03/25/22 23:01 03/26/22 16:06 Dextrose 50% In Water (25gm) 50 Ml Syringe IV 10 ml Q30MIN PRN Administration Hypoglycemia Protocol Famotidine 20 mg 03/26/22 10:00 03/26/22 12:44 Famotidine 20 Mg/2 Ml Inj IV 20 mg DAILY YUNIEL Administration Heparin Sodium (Porcine) 5,000 unit 03/26/22 10:00 03/26/22 12:43 Heparin 5,000 Unit/1 Ml Vial SUB-Q 5,000 unit Q12HR YUNIEL Administration Insulin Human Regular 100 100 mls @ 1 mls/hr 03/25/22 21:00 03/26/22 14:56 units/ Sodium Chloride IV 2 units/hr TITR YUNIEL 2 mls/hr Titration Protocol 1 UNITS/HR Sodium Chloride 1,000 mls @ 150 mls/hr 03/25/22 23:45 Nacl 0.45% 1000 Ml IV DIRECT YUNIEL Potassium Chloride/Dextrose/Sod Cl 20 meq in 1,000 mls @ 125 mls/hr 03/25/22 23:45 03/26/22 06:42 D5w/0.45% Nacl/Kcl 20 Meq IV 125 mls/hr DIRECT YUNIEL Administration Lactated Ringer's 1,000 mls @ 999 mls/hr 03/26/22 17:30 Lactated Ringers IV 03/26/22 18:30 BOLUS ONE Potassium Chloride 10 meq in 100 mls @ 100 mls/hr 03/26/22 17:08 Kcl 10meq/100ml IV 03/26/22 18:07 ONCE ONE Labetalol HCl 10 mg 03/26/22 17:02 Labetalol 20 Mg/4 Ml Inj IV Q10MIN PRN Hypertension Morphine Sulfate 2 mg 03/25/22 23:01 Morphine 2 Mg/1 Ml Inj IV Q4H PRN Pain, Moderate (4-6) Morphine Sulfate 4 mg 03/25/22 23:01 Morphine 4 Mg/1 Ml Inj IV Q4H PRN Pain , Severe (7-10) Ondansetron HCl 4 mg 03/25/22 23:01 Ondansetron 4 Mg/2 Ml Inj IV Q8H PRN Nausea And Vomiting Sodium Chloride 10 ml 03/26/22 10:00 03/26/22 12:46 Sodium Chloride 0.9% 10 Ml Flush Syringe IV 10 ml BID YUNIEL Administration Sodium Chloride 10 ml 03/25/22 23:01 Sodium Chloride 0.9% 10 Ml Flush Syringe IV PRN PRN LINE FLUSH Nutrition/Malnutrition Assess - Dietary Evaluation Nutrition/Malnutrition Findings: Nutrition Notes Start: 03/26/22 15:57 Freq: Status: Active Protocol: Document 03/26/22 15:57 STACIA (Rec: 03/26/22 16:07 STACIA [id number]) Nutrition Notes Need for Assessment generated from: MD Order,Education Initial or Follow up Brief Note Current Diagnosis CKD(stage I-IV),Diabetes, Hypertension,Stroke Other Pertinent Diagnosis Metabolic Encephalopathy, DKA, Elevated Troponin. Current Diet NPO (since 03/25 23:03). Height 5 ft 7 in Weight 54.431 kg [place] Body Weight (kg) 61.36 BMI 18.8 Weight change and time frame None provided at admission. Weight Status Appropriate Subjective/Other Information RD consult for nutrition education assessment. Pt currently on NPO. Pt is on Room Air, O2 saturation @ 99%, according to Physical Assessment History notes. DIGITAL RECRUITER note on 03/26/22 15:01: Attempted to awaken the patient to conduct an evaluation; howeever, was unsuccessful. Informed the patient's nurse that the assessment will be conducted in 72 hours. - END OF NOTE. Pt needs total assistance with ADL activities, not a candidate for Nutrition Education. Percent of energy/protein needs met: Pt currently on NPO. Nutrition Intervention Follow-Up By: 03/29/22 Additional Comments When pertinent, start monitoring food tolerance, %PO intake of meals, and BM.
[2022-03-26] MEDS ORDERED: LACTATED RINGERS 1,000 ML IV ONE (17:30)
--- NOTE | 2022-03-26 17:38 | Magnetic Resonance Report ---
MRI BRAIN 03/26/2022 INDICATION / CLINICAL INFORMATION: stroke, AMS. TECHNIQUE: Multiplanar, multisequence MR images of the brain were obtained. COMPARISON: None available. FINDINGS: BRAIN / INTRACRANIAL CONTENTS: Unenhanced MR images of the brain demonstrate no evidence of acute abn ormality. Ventricles and sulci are prominent in size, consistent with age-related atrophic change. Moderate chronic microangiopathic white matter T2 weighted hyperintensities are present in the perive ntricular white matter. There is no evidence of acute ischemic injury, hemorrhage, or mass. There are no abnormal extra-axial fluid collections. EXTRACRANIAL: Unremarkable CRANIOCERVICAL JUNCTION: No significant abnormality. VASCULAR FLOW-VOIDS: No significant abnormality. IMPRESSION: No acute abnormality. Chronic and age-related changes. Signer Name: Roe Calderon MD Signed: 03/26/2022 5:34 PM Workstation Name: [email or web address]
[2022-03-26] MEDS ORDERED: SODIUM PHOSPHATE 30 MMOL in SODIUM CHLORIDE 0.9% 500 ML 500 ML IV ONE (18:00)
[2022-03-27 01:56] LABS: Calcium 9.5 mg/dL (8.4-10.2)
[2022-03-27] MEDS: IPRATROPIUM/ALBUTEROL SULFATE 3 ML AMPUL.NEB IH SCH ×4 (02:50→19:47)
[2022-03-27] MEDS: D5W/0.45% NACL/KCL 20 MEQ 20 MEQ/1,000 ML BAG IV SCH (06:19)
[2022-03-27 06:43] LABS: Hematocrit 35.6 % (30.3-42.9); Hemoglobin 11.9 gm/dl (10.1-14.3); Mean Corpuscular HGB Conc 33 % (30-34); Mean Corpuscular Volume 80 fl (79-97); Platelet Count 153 K/mm3 (140-440); Red Blood Count 4.47 M/mm3 (3.65-5.03); Red Cell Distribution Width 18.5 % (13.2-15.2)
[2022-03-27] MEDS ORDERED: DEXTROSE 50% IN WATER (25GM) 50 ML SYRINGE IV PRN (08:28)
[2022-03-27] MEDS ORDERED: MAGNESIUM SULFATE 2 GM/50 ML BAG IV ONE (09:30)
[2022-03-27] MEDS ORDERED: GABAPENTIN 100 MG CAP PO SCH (10:00)
[2022-03-27] MEDS ORDERED: INSULIN GLARGINE 100 UNITS/ML SUB-Q SCH (10:00)
[2022-03-27] MEDS ORDERED: carvediloL 25 MG TAB PO SCH (10:00)
[2022-03-27] MEDS: DULoxetine 30 MG CAP PO SCH (10:32)
[2022-03-27] MEDS: carvediloL 12.5 MG TAB PO SCH ×2 (10:32→22:47)
[2022-03-27] MEDS: FERROUS SULFATE 325 MG TAB PO SCH (10:32)
[2022-03-27] MEDS: HEPARIN 5,000 UNIT/1 ML VIAL SUB-Q SCH ×2 (10:34→22:47)
[2022-03-27] MEDS: FAMOTIDINE 20 MG/2 ML INJ IV SCH (10:56)
--- NOTE | 2022-03-27 11:10 | Progress Note ---
Assessment and Plan 81 y/o female with stroke and dKA 03/27/22: Transition to long acting insulin. Replace Mag. Bedside swallow, if passes feeds. MRI was negative. Transfer to floor. 1. Continue insulin therapy until Anion Gap is closed 2. Will keep NPO as well. Most likey will need dh if mental status does not improve. 3. No sedative therapy 4. BP control 5. neuro checks. 6. monitor renal function CCT 31 minutes. Subjective Date of service: 03/27/22 Interval history: No acute events but more awake this morning Sugar is better and anion gap is closed. Renal function stable. Needs Magnesium Objective - Constitutional Vitals: Vital Signs - 12hr 03/26/22 03/26/22 03/26/22 23:10 23:20 23:30 Temperature Pulse Rate 95 H 95 H 96 H Pulse Rate [ Bilateral] Pulse Rate [ From Monitor] Respiratory 14 14 14 Rate Respiratory Rate [Bilateral ] Blood Pressure 133/73 170/91 137/73 O2 Sat by Pulse 100 100 99 Oximetry 03/26/22 03/26/22 03/27/22 23:40 23:50 00:00 Temperature 98.1 F Pulse Rate 86 92 H 93 H Pulse Rate [ Bilateral] Pulse Rate [ 93 H From Monitor] Respiratory 15 14 13 Rate Respiratory Rate [Bilateral ] Blood Pressure 137/73 133/73 133/73 O2 Sat by Pulse 100 100 100 Oximetry 03/27/22 03/27/22 03/27/22 00:10 00:20 00:30 Temperature Pulse Rate 89 84 95 H Pulse Rate [ Bilateral] Pulse Rate [ From Monitor] Respiratory 13 9 L 16 Rate Respiratory Rate [Bilateral ] Blood Pressure 148/88 148/88 174/81 O2 Sat by Pulse 100 100 100 Oximetry 03/27/22 03/27/22 03/27/22 00:40 00:50 01:00 Temperature Pulse Rate 78 98 H 99 H Pulse Rate [ Bilateral] Pulse Rate [ From Monitor] Respiratory 13 18 15 Rate Respiratory Rate [Bilateral ] Blood Pressure 174/81 174/81 154/99 O2 Sat by Pulse 99 99 100 Oximetry 03/27/22 03/27/22 03/27/22 01:10 01:20 01:30 Temperature Pulse Rate 98 H 88 96 H Pulse Rate [ Bilateral] Pulse Rate [ From Monitor] Respiratory 12 13 14 Rate Respiratory Rate [Bilateral ] Blood Pressure 154/99 154/99 160/101 O2 Sat by Pulse 100 100 100 Oximetry 03/27/22 03/27/22 03/27/22 01:40 01:50 02:00 Temperature Pulse Rate 92 H 95 H 95 H Pulse Rate [ Bilateral] Pulse Rate [ From Monitor] Respiratory 14 12 14 Rate Respiratory Rate [Bilateral ] Blood Pressure 160/101 160/101 119/72 O2 Sat by Pulse 100 100 100 Oximetry 03/27/22 03/27/22 03/27/22 02:10 02:20 02:30 Temperature Pulse Rate 88 97 H 88 Pulse Rate [ Bilateral] Pulse Rate [ From Monitor] Respiratory 14 12 20 Rate Respiratory Rate [Bilateral ] Blood Pressure 119/72 119/72 176/92 O2 Sat by Pulse 99 99 100 Oximetry 03/27/22 03/27/22 03/27/22 02:40 02:50 03:00 Temperature Pulse Rate 93 H 89 93 H Pulse Rate [ 88 Bilateral] Pulse Rate [ From Monitor] Respiratory 14 14 14 Rate Respiratory 18 Rate [Bilateral ] Blood Pressure 176/92 176/92 126/78 O2 Sat by Pulse 99 100 100 Oximetry 03/27/22 03/27/22 03/27/22 03:10 03:20 03:30 Temperature Pulse Rate 92 H 86 95 H Pulse Rate [ Bilateral] Pulse Rate [ From Monitor] Respiratory 14 15 14 Rate Respiratory Rate [Bilateral ] Blood Pressure 126/78 126/78 128/65 O2 Sat by Pulse 100 100 100 Oximetry 03/27/22 03/27/22 03/27/22 03:40 03:50 04:00 Temperature 98.3 F Pulse Rate 89 91 H 77 Pulse Rate [ Bilateral] Pulse Rate [ 87 From Monitor] Respiratory 13 14 14 Rate Respiratory Rate [Bilateral ] Blood Pressure 128/65 126/78 126/78 O2 Sat by Pulse 100 100 98 Oximetry 03/27/22 03/27/22 03/27/22 04:10 04:20 04:30 Temperature Pulse Rate 97 H 85 100 H Pulse Rate [ Bilateral] Pulse Rate [ From Monitor] Respiratory 11 L 11 L 11 L Rate Respiratory Rate [Bilateral ] Blood Pressure 133/102 133/102 153/83 O2 Sat by Pulse 100 100 100 Oximetry 03/27/22 03/27/22 03/27/22 04:40 04:50 05:00 Temperature Pulse Rate 80 86 85 Pulse Rate [ Bilateral] Pulse Rate [ From Monitor] Respiratory 14 13 13 Rate Respiratory Rate [Bilateral ] Blood Pressure 153/83 153/83 141/69 O2 Sat by Pulse 100 100 100 Oximetry 03/27/22 03/27/22 03/27/22 05:10 05:20 05:30 Temperature Pulse Rate 91 H 89 94 H Pulse Rate [ Bilateral] Pulse Rate [ From Monitor] Respiratory 12 13 15 Rate Respiratory Rate [Bilateral ] Blood Pressure 141/69 141/69 146/80 O2 Sat by Pulse 100 100 97 Oximetry 03/27/22 03/27/22 03/27/22 05:40 05:50 06:00 Temperature Pulse Rate 89 92 H 91 H Pulse Rate [ Bilateral] Pulse Rate [ From Monitor] Respiratory 15 12 14 Rate Respiratory Rate [Bilateral ] Blood Pressure 146/80 146/80 146/80 O2 Sat by Pulse 100 100 94 Oximetry 03/27/22 03/27/22 03/27/22 06:10 06:20 06:30 Temperature Pulse Rate 89 92 H 106 H Pulse Rate [ Bilateral] Pulse Rate [ From Monitor] Respiratory 15 13 17 Rate Respiratory Rate [Bilateral ] Blood Pressure 166/93 166/93 166/93 O2 Sat by Pulse 100 99 97 Oximetry 03/27/22 03/27/22 03/27/22 06:40 06:50 07:00 Temperature Pulse Rate 91 H 89 100 H Pulse Rate [ Bilateral] Pulse Rate [ From Monitor] Respiratory 15 13 14 Rate Respiratory Rate [Bilateral ] Blood Pressure 147/74 147/74 147/74 O2 Sat by Pulse 100 100 97 Oximetry 03/27/22 03/27/22 03/27/22 07:10 07:20 07:30 Temperature Pulse Rate 90 89 86 Pulse Rate [ Bilateral] Pulse Rate [ From Monitor] Respiratory 13 14 13 Rate Respiratory Rate [Bilateral ] Blood Pressure 115/63 115/63 111/54 O2 Sat by Pulse 100 100 100 Oximetry 03/27/22 03/27/22 03/27/22 07:33 07:34 07:40 Temperature Pulse Rate 92 H Pulse Rate [ 82 Bilateral] Pulse Rate [ From Monitor] Respiratory 18 Rate Respiratory 18 Rate [Bilateral ] Blood Pressure 111/54 O2 Sat by Pulse 99 100 Oximetry 03/27/22 03/27/22 03/27/22 07:50 08:00 08:10 Temperature 98 F Pulse Rate 89 87 89 Pulse Rate [ Bilateral] Pulse Rate [ 90 From Monitor] Respiratory 19 12 13 Rate Respiratory Rate [Bilateral ] Blood Pressure 111/54 151/96 151/96 O2 Sat by Pulse 100 100 99 Oximetry 03/27/22 03/27/22 03/27/22 08:20 08:30 08:40 Temperature Pulse Rate 92 H 87 89 Pulse Rate [ Bilateral] Pulse Rate [ From Monitor] Respiratory 13 12 11 L Rate Respiratory Rate [Bilateral ] Blood Pressure 151/96 122/63 122/63 O2 Sat by Pulse 100 100 100 Oximetry 03/27/22 03/27/22 03/27/22 08:46 08:50 09:00 Temperature Pulse Rate 91 H 80 78 Pulse Rate [ Bilateral] Pulse Rate [ From Monitor] Respiratory 12 16 Rate Respiratory Rate [Bilateral ] Blood Pressure 122/63 151/96 O2 Sat by Pulse 100 74 L Oximetry 03/27/22 03/27/22 03/27/22 09:10 09:20 09:30 Temperature Pulse Rate 97 H 84 82 Pulse Rate [ Bilateral] Pulse Rate [ From Monitor] Respiratory 16 13 13 Rate Respiratory Rate [Bilateral ] Blood Pressure 120/65 120/65 147/90 O2 Sat by Pulse 100 100 100 Oximetry 03/27/22 03/27/22 03/27/22 09:40 09:50 10:00 Temperature Pulse Rate 91 H 86 88 Pulse Rate [ Bilateral] Pulse Rate [ From Monitor] Respiratory 15 13 12 Rate Respiratory Rate [Bilateral ] Blood Pressure 147/90 147/90 147/90 O2 Sat by Pulse 99 100 99 Oximetry 03/27/22 03/27/22 10:10 10:32 Temperature Pulse Rate 81 80 Pulse Rate [ Bilateral] Pulse Rate [ From Monitor] Respiratory 14 Rate Respiratory Rate [Bilateral ] Blood Pressure 147/90 138/72 O2 Sat by Pulse 96 Oximetry - Labs CBC & Chem 7: 03/27/22 05:22 03/27/22 05:22 Labs: Abnormal lab results 03/26/22 03/26/22 03/26/22 Range/Units 09:49 11:56 14:18 WBC (4.5-11.0) K/mm3 MCH (28-32) pg RDW (13.2-15.2) % Potassium (3.6-5.0) mmol/L Chloride (98-107) mmol/L Carbon Dioxide (22-30) mmol/L BUN (7-17) mg/dL Creatinine (0.6-1.2) mg/dL Glucose (65-100) mg/dL POC Glucose 324 H 255 H 64 L (70-105) mg/dL Calcium (8.4-10.2) mg/dL Magnesium (1.7-2.3) mg/dL 03/26/22 03/26/22 03/26/22 Range/Units 14:21 15:04 19:06 WBC (4.5-11.0) K/mm3 MCH (28-32) pg RDW (13.2-15.2) % Potassium 3.4 L (3.6-5.0) mmol/L Chloride 112.5 H (98-107) mmol/L Carbon Dioxide 18 L (22-30) mmol/L BUN 23 H (7-17) mg/dL Creatinine 1.5 H (0.6-1.2) mg/dL Glucose 126 H (65-100) mg/dL POC Glucose 69 L 107 H (70-105) mg/dL Calcium 10.8 H (8.4-10.2) mg/dL Magnesium (1.7-2.3) mg/dL 03/26/22 03/26/22 03/26/22 Range/Units 19:25 19:57 23:10 WBC (4.5-11.0) K/mm3 MCH (28-32) pg RDW (13.2-15.2) % Potassium (3.6-5.0) mmol/L Chloride 110.4 H (98-107) mmol/L Carbon Dioxide 19 L (22-30) mmol/L BUN 22 H (7-17) mg/dL Creatinine 1.5 H (0.6-1.2) mg/dL Glucose 103 H (65-100) mg/dL POC Glucose 119 H 128 H (70-105) mg/dL Calcium (8.4-10.2) mg/dL Magnesium (1.7-2.3) mg/dL 03/27/22 03/27/22 03/27/22 Range/Units 00:01 01:25 03:17 WBC (4.5-11.0) K/mm3 MCH (28-32) pg RDW (13.2-15.2) % Potassium (3.6-5.0) mmol/L Chloride 111.3 H (98-107) mmol/L Carbon Dioxide 18 L (22-30) mmol/L BUN 18 H (7-17) mg/dL Creatinine 1.3 H (0.6-1.2) mg/dL Glucose (65-100) mg/dL POC Glucose 128 H 118 H (70-105) mg/dL Calcium (8.4-10.2) mg/dL Magnesium (1.7-2.3) mg/dL 03/27/22 03/27/22 Range/Units 05:22 05:22 WBC 18.0 H (4.5-11.0) K/mm3 MCH 27 L (28-32) pg RDW 18.5 H (13.2-15.2) % Potassium (3.6-5.0) mmol/L Chloride 110.0 H (98-107) mmol/L Carbon Dioxide 17 L (22-30) mmol/L BUN (7-17) mg/dL Creatinine 1.3 H (0.6-1.2) mg/dL Glucose (65-100) mg/dL POC Glucose (70-105) mg/dL Calcium (8.4-10.2) mg/dL Magnesium 1.50 L (1.7-2.3) mg/dL Medications & Allergies - Medications Allergies/Adverse Reactions: Allergies Penicillins Allergy (Verified 03/25/22 18:41) Anaphylaxis Home Medications: Home Medications Medication Instructions Recorded Confirmed Last Taken Type AtorvaSTATin [Lipitor] 10 mg PO QHS 03/26/22 03/26/22 Unknown History DULoxetine [Cymbalta] 30 mg PO QDAY 03/26/22 03/26/22 Unknown History Estrogens, Conjugated [Premarin] 0.9 mg PO QDAY 03/26/22 03/26/22 Unknown History Ferrous Sulfate [Feosol] 325 mg PO QDAY 03/26/22 03/26/22 Unknown History Gabapentin [Neurontin] 100 mg PO QDAY 03/26/22 03/26/22 Unknown History Insulin Glargine [Lantus VIAL] 10 unit SUB-Q QHS 03/26/22 03/26/22 Unknown History amLODIPine [Norvasc] 5 mg PO DAILY 03/26/22 03/26/22 Unknown History carvediloL [Coreg] 25 mg PO BID 03/26/22 03/26/22 Unknown History hydrALAZINE [Apresoline] 50 mg PO BID 03/26/22 03/26/22 Unknown History traMADoL [Ultram] 50 mg PO QDAY 03/26/22 03/26/22 Unknown History Active Medications: Generic Name Dose Route Start Last Admin Trade Name Freq PRN Reason Stop Dose Admin Acetaminophen 650 mg 03/25/22 23:01 Acetaminophen 325 Mg Tab PO Q4H PRN Pain MILD(1-3)/Fever >100.5/GUTIERREZ Albuterol 2.5 mg 03/25/22 23:01 Albuterol 2.5 Mg/3 Ml Nebu IH Q3HRT PRN Shortness Of Breath Albuterol/Ipratropium 1 ampul 03/26/22 02:00 03/27/22 07:30 Ipratropium/Albuterol Sulfate 3 Ml Ampul.Neb IH 1 ampul Q6HRT YUNIEL Administration Aspirin 81 mg 03/27/22 11:30 Aspirin 81 Mg Tab Chew PO QDAY YUNIEL Atorvastatin Calcium 40 mg 03/26/22 22:00 03/27/22 06:12 Atorvastatin 40 Mg Tab PO Not Given QHS YUNIEL Carvedilol 12.5 mg 03/27/22 10:00 03/27/22 10:32 Carvedilol 12.5 Mg Tab PO 12.5 mg BID YUNIEL Administration Dextrose 50 ml 03/27/22 08:28 Dextrose 50% In Water (25gm) 50 Ml Syringe IV Q30MIN PRN Hypoglycemia Protocol Duloxetine HCl 30 mg 03/27/22 10:00 03/27/22 10:32 Duloxetine 30 Mg Cap PO 30 mg QDAY YUNIEL Administration Famotidine 20 mg 03/26/22 10:00 03/27/22 10:56 Famotidine 20 Mg/2 Ml Inj IV Not Given DAILY YUNIEL Ferrous Sulfate 325 mg 03/27/22 10:00 03/27/22 10:32 Ferrous Sulfate 325 Mg Tab PO 325 mg QDAY YUNIEL Administration Gabapentin 100 mg 03/27/22 10:00 03/27/22 10:33 Gabapentin 100 Mg Cap PO 100 mg QDAY YUNIEL Administration Heparin Sodium (Porcine) 5,000 unit 03/26/22 10:00 03/27/22 10:34 Heparin 5,000 Unit/1 Ml Vial SUB-Q 5,000 unit Q12HR YUNIEL Administration Sodium Chloride 1,000 mls @ 150 mls/hr 03/25/22 23:45 Nacl 0.45% 1000 Ml IV DIRECT YUNIEL Magnesium Sulfate 2 gm in 50 mls @ 25 mls/hr 03/27/22 09:30 03/27/22 10:34 Magnesium Sulfate 2gm/50ml IV 03/27/22 11:29 25 mls/hr ONCE ONE Administration Insulin Glargine 20 units 03/27/22 11:30 Insulin Glargine 100 Units/Ml SUB-Q QAMDIAB [facility] Insulin Human Lispro 0 unit 03/27/22 12:00 Insulin Lispro 100 Unit/Ml SUB-Q Q6HR [facility] Protocol Labetalol HCl 10 mg 03/26/22 17:02 03/26/22 18:15 Labetalol 20 Mg/4 Ml Inj IV 10 mg Q10MIN PRN Administration Hypertension Morphine Sulfate 2 mg 03/25/22 23:01 Morphine 2 Mg/1 Ml Inj IV Q4H PRN Pain, Moderate (4-6) Morphine Sulfate 4 mg 03/25/22 23:01 Morphine 4 Mg/1 Ml Inj IV Q4H PRN Pain , Severe (7-10) Ondansetron HCl 4 mg 03/25/22 23:01 Ondansetron 4 Mg/2 Ml Inj IV Q8H PRN Nausea And Vomiting Sodium Chloride 10 ml 03/26/22 10:00 03/26/22 12:46 Sodium Chloride 0.9% 10 Ml Flush Syringe IV 10 ml BID YUNIEL Administration Sodium Chloride 10 ml 03/25/22 23:01 Sodium Chloride 0.9% 10 Ml Flush Syringe IV PRN PRN LINE FLUSH HEART Score - HEART Score Troponin: Troponin T 0.068 ng/mL (0.00-0.029) H 03/25/22 18:24
[2022-03-27] MEDS: ASPIRIN 81 MG TAB CHEW PO SCH (11:28)
[2022-03-27] MEDS: INSULIN LISPRO 100 UNIT/ML SUB-Q SCH ×2 (11:29→18:24)
[2022-03-27] MEDS: INSULIN GLARGINE 100 UNITS/ML SUB-Q SCH (12:01)
[2022-03-27] MEDS ORDERED: SODIUM CHLORIDE 0.9% 1000 ML 1,000 ML ONE (13:21)
[2022-03-27] MEDS ORDERED: SODIUM CHLORIDE 0.9% 500 ML 500 ML IV ONE (14:00)
--- NOTE | 2022-03-27 15:12 | Cat Scan Report ---
CT head/brain wo con INDICATION: ams. TECHNIQUE: Routine CT head. All CT scans at this location are performed using CT dose reduction for A JOEY by means of automated exposure control. COMPARISON: 03/26/2022 FINDINGS: Intracranial: Jasso-white matter differentiation is maintained. No intracranial hemorrhage. No extra a xial collection. Prominent ventricular caliber is unchanged, likely related to volume loss. Callosal angle is not acute. 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 No herniation. Sinuses: Paranasal sinuses and mastoid air cells are essentially clear. Orbits: Globes are intact. Calvarium: No acute fracture. IMPRESSION: 1. No acute intracranial abnormality. Signer Name: Jsu Rice MD Signed: 03/27/2022 3:08 PM Workstation Name: [id number]
--- NOTE | 2022-03-27 16:10 | Progress Note ---
Assessment and Plan Assessment and plan: This is a 81-year-old female with DM admitted with DKA, BOYD, leukocytosis, hypomagnesemia, r/o CVA Neuro: Ruled out CVA, h/o depression, peripheral neuropathy -Per Teleneurology NIHSS of 31 -Initial CT head showed no acute intracranial abnormality, extensive microvascular angiopathy and possible normal pressure hydrocephalus -CTA head showed no large vessel occlusion -CTA neck showed no significant stenosis involving the cervical carotid or vertebral arteries. -Neurology consulted, appreciate recommendations -Aspirin, Lipitor -Lipid panel noted -Maintain normothermia, euglycemia -Echocardiogram with bubble study pending -MRI brain with cerebral atrophy, no CVA -PT/OT/ST consulted -Permissive hypertension for 24 hours -Restarted home Cymbalta -Restarted home gabapentin however given more somnolence/lethargy will withhold -CT head obtained shows no acute intracranial normality Cardiac: h/o HTN, HLD -Blood pressure monitoring per protocol -Home antihypertensive regimen: Coreg, hydralazine, amlodipine -Echocardiogram pending -Resume home antihypertensive regimen and adjust as needed if needed -restarted coreg at lower dose Respiratory: NAD -Pulmonary hygiene -Supplemental oxygen as needed -SPO2 monitoring GI: NAD -PPI -CC cardiac diet -24 hours +669 ml : Acute kidney injury likely secondary to vasomotor nephropathy, hypomagnesemia, metabolic acidosis -Monitor intake and output -Renally dose medications -Avoid nephrotoxic medications -Replace Mag -Trend BMP ID: NAD -Infectious disease consulted, appreciate recommendation -f/u blood culture -UA and UC pending -Monitor WBC and temperature curve Endo: DKA (resolved), h/o DM -s/p Insulin gtt -SSI and long acting insulin -Hbg A1C 13 -Avoid hypoglycemia Heme: Leukocytosis -CXR without acute abnormality, urinalysis normal, no fevers -Trend CBC -Transfuse hemoglobin less than 7 -SCDs to BLE while in bed The high probability of a clinically significant, sudden or life threatening deterioration of the [endo/neuro] system(s) required my full and direct attention, intervention and personal management. The aggregate critical care time was [90] minutes. This time is in addition to time spent performing reported procedures but includes the following: [x] Data Review and interpretation [x] Patient assessment and monitoring of vital signs [x] Documentation [x] Medication orders and management Disposition Plan: Transfer to floor Total Time Spent with Patient (Minutes): 60 History Interval history: This is a 81-year-old female with diabetes, HTN, depression who presents to the emergency department with via EMS on 03/25 with concerns of possible stroke with altered mental status. Patient's last known well at her baseline was 03/24 around 9 PM when she was talking to her son. Apparently around 4:45 PM there was forced entry by EMS into her home when she was found on the ground unresponsive and her blood glucose was 500. In the emergency department patient was awake but unresponsive with a right-sided gaze preference. Teleneurology was consulted who assessed initial NIHSS of 31 and stated patient is a possible candidate for tPA if CT angio of head and neck were abnormal and if LVO was found patient will need to be transferred for a thrombectomy. Initial CT head showed no acute intracranial abnormality, extensive microvascular angiopathy and possible normal pressure hydrocephalus, CTA head showed no large vessel occlusion and CTA neck showed no significant stenosis involving the cervical carotid or vertebral arteries. Lab work in the emergency department also revealed leukocytosis, acute kidney injury, high anion gap Metabolic acidosis, hyperglycemia, hypomagnesemia. Patient was admitted to the hospitalist service with DKA possible CVA. Hospital course to date: 03/26: Patient remains on insulin drip as anion gap is now closed, given LR bolus this afternoon. MRI brain completed. RN to perform straight cath to obtain UA/UC. Instructed to leave Sidhu catheter in place as hospitals are of straight cath kits if urine output greater than 300 mL. 03/27: Anion gap closed, transition to SSI and long-acting insulin. Started on a pured CC diet after passing bedside swallow evaluation. This afternoon patient was somnolent, only responding to sternal rub with minimal moaning. She was also hypotensive with maps in the 50s and 60s. 1 L normal saline bolus gi priyank. Blood pressure recovered and patient became more arousable. After bolus patient was able to be aroused and was oriented x4. Patient still has sleepiness however she is arousable to voice. Patient was to be discharged home but we will hold discharge and transfer her to the floor. Hospitalist Physical - Physical exam Narrative exam: Physical Exam: VITAL SIGNS: Reviewed. GENERAL: The patient appears normally developed, Vital signs as documented. HEAD: No signs of head trauma. EYES: Pupils are equal. Extraocular motions intact. EARS: Hearing intact. MOUTH: Oropharynx is normal. NECK: No adenopathy, no JVD. CHEST: Chest with clear breath sounds bilaterally. No wheezes, rales, or rhonchi. CARDIAC: Regular rate and rhythm. S1 and S2, without murmurs, gallops, or rubs. VASCULAR: No Edema. Peripheral pulses normal and equal in all extremities. ABDOMEN: Soft, non tender and non distended. No rebound or guarding, and no masses palpated. Bowel Sounds normal. MUSCULOSKELETAL: Moves extremities spontaneously NEUROLOGIC EXAM: Opens eyes, moves all extremities spontaneously, follows comm ands, able to hold conversation this morning. Left-sided facial droop much improved. Patient is more lethargic this afternoon however arousable to verbal stimuli. - Constitutional Vitals: Temp Pulse Resp BP Pulse Ox 98 F 78 14 120/63 98 03/27/22 12:00 03/27/22 15:21 03/27/22 15:21 03/27/22 15:21 03/27/22 15:21 General appearance: Present: no acute distress, well-nourished HEART Score - HEART Score Troponin: Troponin T 0.068 ng/mL (0.00-0.029) H 03/25/22 18:24 Results - Labs CBC & Chem 7: 03/27/22 05:22 03/27/22 05:22 Labs: Laboratory Last Values WBC 18.0 K/mm3 (4.5-11.0) H 03/27/22 05:22 RBC 4.47 M/mm3 (3.65-5.03) 03/27/22 05:22 Hgb 11.9 gm/dl (10.1-14.3) 03/27/22 05:22 Hct 35.6 % (30.3-42.9) 03/27/22 05:22 MCV 80 fl (79-97) 03/27/22 05:22 MCH 27 pg (28-32) L 03/27/22 05:22 MCHC 33 % (30-34) 03/27/22 05:22 RDW 18.5 % (13.2-15.2) H 03/27/22 05:22 Plt Count 153 K/mm3 (140-440) 03/27/22 05:22 Lymph % (Auto) 5.9 % (13.4-35.0) L 03/25/22 18:24 Carter % (Auto) 3.5 % (0.0-7.3) 03/25/22 18:24 Eos % (Auto) 0.0 % (0.0-4.3) 03/25/22 18:24 Baso % (Auto) 0.8 % (0.0-1.8) 03/25/22 18:24 Lymph # (Auto) 0.8 K/mm3 (1.2-5.4) L 03/25/22 18:24 Carter # (Auto) 0.5 K/mm3 (0.0-0.8) 03/25/22 18:24 Eos # (Auto) 0.0 K/mm3 (0.0-0.4) 03/25/22 18:24 Baso # (Auto) 0.1 K/mm3 (0.0-0.1) 03/25/22 18:24 Seg Neutrophils % 89.8 % (40.0-70.0) H 03/25/22 18:24 Seg Neutrophils # 12.6 K/mm3 (1.8-7.7) H 03/25/22 18:24 PT 14.1 Sec. (12.2-14.9) 03/25/22 18:24 INR 0.98 (0.87-1.13) 03/25/22 18:24 APTT 24.7 Sec. (24.2-36.6) 03/25/22 18:24 Thrombin Time 16.8 Sec. (15.1-19.6) 03/25/22 18:24 VBG pH 7.276 (7.320-7.420) L 03/25/22 20:02 Sodium 141 mmol/L (137-145) 03/27/22 05:22 Potassium 4.2 mmol/L (3.6-5.0) 03/27/22 05:22 Chloride 110.0 mmol/L (98-107) H 03/27/22 05:22 Carbon Dioxide 17 mmol/L (22-30) L 03/27/22 05:22 Anion Gap 18 mmol/L 03/27/22 05:22 BUN 17 mg/dL (7-17) 03/27/22 05:22 Creatinine 1.3 mg/dL (0.6-1.2) H 03/27/22 05:22 Estimated GFR 48 ml/min 03/27/22 05:22 BUN/Creatinine Ratio 13 % 03/27/22 05:22 Glucose 90 mg/dL (65-100) 03/27/22 05:22 POC Glucose 193 mg/dL (70-105) H 03/27/22 13:15 Hemoglobin A1c 13.0 % (4-6) H 03/27/22 05:22 Ketones Quantitative Moderate (Negative) 03/25/22 20:02 Calcium 9.0 mg/dL (8.4-10.2) 03/27/22 05:22 Phosphorus 3.30 mg/dL (2.5-4.5) D 03/27/22 05:22 Magnesium 1.50 mg/dL (1.7-2.3) L 03/27/22 05:22 Total Bilirubin 0.80 mg/dL (0.1-1.2) 03/25/22 18:24 AST 32 units/L (5-40) 03/25/22 18:24 ALT 17 units/L (7-56) 03/25/22 18:24 Alkaline Phosphatase 72 units/L (35-129) 03/25/22 18:24 Ammonia 12.0 umol/L (25-60) L 03/25/22 18:24 Total Creatine Kinase 331 units/L (30-135) H 03/25/22 18:24 CK-MB (CK-2) 4.4 ng/mL (0.0-4.0) H 03/25/22 18:24 CK-MB (CK-2) Rel Index 1.3 (0-4) 03/25/22 18:24 Troponin T 0.068 ng/mL (0.00-0.029) H 03/25/22 18:24 Total Protein 7.6 g/dL (6.3-8.2) 03/25/22 18:24 Albumin 4.6 g/dL (3.9-5) 03/25/22 18:24 Albumin/Globulin Ratio 1.5 % 03/25/22 18:24 Triglycerides 190 mg/dL (2-149) H 03/25/22 18:24 Cholesterol 189 mg/dL (50-199) 03/25/22 18:24 LDL Cholesterol Direct 79 mg/dL (50-130) 03/25/22 18:24 HDL Cholesterol 94 mg/dL (40-59) H 03/25/22 18:24 Cholesterol/HDL Ratio 2.01 % 03/25/22 18:24 Urine Color Yellow (Yellow) 03/26/22 16:40 Urine Turbidity Clear (Clear) 03/26/22 16:40 Urine pH 5.0 (5.0-7.0) 03/26/22 16:40 Ur Specific [place] 1.027 (1.003-1.030) 03/26/22 16:40 Urine Protein 100 mg/dl mg/dL (Negative) 03/26/22 16:40 Urine Glucose (UA) >=500 mg/dL (Negative) 03/26/22 16:40 Urine Ketones Tr mg/dL (Negative) 03/26/22 16:40 Urine Blood Mod (Negative) 03/26/22 16:40 Urine Nitrite Neg (Negative) 03/26/22 16:40 Urine Bilirubin Neg (Negative) 03/26/22 16:40 Urine Urobilinogen < 2.0 mg/dL (<2.0) 03/26/22 16:40 Ur Leukocyte Esterase Neg (Negative) 03/26/22 16:40 Urine WBC (Auto) 2.0 /HPF (0.0-6.0) 03/26/22 16:40 Urine RBC (Auto) 2.0 /HPF (0.0-6.0) 03/26/22 16:40 U Epithel Cells (Auto) 1.0 /HPF (0-13.0) 03/26/22 16:40 Granular Casts 4 /LPF 03/26/22 16:40 Urine Mucus Few /HPF 03/26/22 16:40 Plasma/Serum Alcohol < 0.01 % (0-0.07) 03/25/22 18:24 Blood Type A POSITIVE 03/25/22 18:24 Antibody Screen Negative 03/25/22 18:24 Active Medications - Current Medications Current Medications: Generic Name Dose Route Start Last Admin Trade Name Freq PRN Reason Stop Dose Admin Acetaminophen 650 mg 03/25/22 23:01 Acetaminophen 325 Mg Tab PO Q4H PRN Pain MILD(1-3)/Fever >100.5/GUTIERREZ Albuterol 2.5 mg 03/25/22 23:01 Albuterol 2.5 Mg/3 Ml Nebu IH Q3HRT PRN Shortness Of Breath Albuterol/Ipratropium 1 ampul 03/26/22 02:00 03/27/22 15:38 Ipratropium/Albuterol Sulfate 3 Ml Ampul.Neb IH Not Given Q6HRT [facility] Aspirin 81 mg 03/27/22 11:30 03/27/22 11:28 Aspirin 81 Mg Tab Chew PO Not Given QDAY [facility] Atorvastatin Calcium 40 mg 03/26/22 22:00 03/27/22 06:12 Atorvastatin 40 Mg Tab PO Not Given QHS [facility] Carvedilol 12.5 mg 03/27/22 10:00 03/27/22 10:32 Carvedilol 12.5 Mg Tab PO 12.5 mg BID YUNIEL Administration Dextrose 50 ml 03/27/22 08:28 Dextrose 50% In Water (25gm) 50 Ml Syringe IV Q30MIN PRN Hypoglycemia Protocol Duloxetine HCl 30 mg 03/27/22 10:00 03/27/22 10:32 Duloxetine 30 Mg Cap PO 30 mg QDAY YUNIEL Administration Famotidine 20 mg 03/26/22 10:00 03/27/22 10:56 Famotidine 20 Mg/2 Ml Inj IV Not Given DAILY [facility] Ferrous Sulfate 325 mg 03/27/22 10:00 03/27/22 10:32 Ferrous Sulfate 325 Mg Tab PO 325 mg QDAY YUNIEL Administration Heparin Sodium (Porcine) 5,000 unit 03/26/22 10:00 03/27/22 10:34 Heparin 5,000 Unit/1 Ml Vial SUB-Q 5,000 unit Q12HR YUNIEL Administration Sodium Chloride 1,000 mls @ 150 mls/hr 03/25/22 23:45 Nacl 0.45% 1000 Ml IV DIRECT YUNIEL Insulin Glargine 20 units 03/27/22 11:30 03/27/22 12:01 Insulin Glargine 100 Units/Ml SUB-Q 20 units QAMDIAB YUNIEL Administration Insulin Human Lispro 0 unit 03/27/22 12:00 03/27/22 11:29 Insulin Lispro 100 Unit/Ml SUB-Q Not Given Q6HR [facility] Protocol Labetalol HCl 10 mg 03/26/22 17:02 03/26/22 18:15 Labetalol 20 Mg/4 Ml Inj IV 10 mg Q10MIN PRN Administration Hypertension Morphine Sulfate 2 mg 03/25/22 23:01 Morphine 2 Mg/1 Ml Inj IV Q4H PRN Pain, Moderate (4-6) Morphine Sulfate 4 mg 03/25/22 23:01 Morphine 4 Mg/1 Ml Inj IV Q4H PRN Pain , Severe (7-10) Ondansetron HCl 4 mg 03/25/22 23:01 Ondansetron 4 Mg/2 Ml Inj IV Q8H PRN Nausea And Vomiting Sodium Chloride 10 ml 03/26/22 10:00 03/27/22 13:56 Sodium Chloride 0.9% 10 Ml Flush Syringe IV 10 ml BID YUNIEL Administration Sodium Chloride 10 ml 03/25/22 23:01 Sodium Chloride 0.9% 10 Ml Flush Syringe IV PRN PRN LINE FLUSH Nutrition/Malnutrition Assess - Dietary Evaluation Nutrition/Malnutrition Findings: Nutrition Notes Start: 03/26/22 15:57 Freq: Status: Active Protocol: Document 03/27/22 12:28 RS (Rec: 03/27/22 12:52 RS [id number]) Nutrition Notes Need for Assessment generated from: MD Order Initial or Follow up Assessment Current Diagnosis CKD(stage I-IV),Diabetes, Hypertension,Stroke Other Pertinent Diagnosis Metabolic Encephalopathy, DKA, Elevated Troponin. Current Diet Consistent CHO Labs/Tests Cl: 110 Co2:17 Cr:1.3 M.5 Pertinent Medications Reviewed Height 5 ft 7 in Weight 54.431 kg [place] Body Weight (kg) 61.36 BMI 18.8 Weight change and time frame BRIAN wt hx Weight Status Appropriate Subjective/Other Information MD consult to write/manage TF. Diet education innapropriate at this time d/t pt AMS. Per RN report, MD took pt off NPO status. Pt tolerating PO intake, currently recieving consistent CHO diet. Pt consumed 100% of breakfast tray. RD to reccomend to start TF at this time d/t tolerated PO intake> RD will provide Glucerna qd. Burn Absent Trauma Absent Current % PO Good (75-100%) Minimum of two criteria No #1 Nutrition Diagnosis Excessive carbohydrate intake Etiology DKA As Evidenced by Signs and Symptoms BG level of 500 upon admission , pt displays AMS Diagnosis Progress(for reassessment Resolved documentation) Is patient on ventilator? No Is Patient Ambulatory and/or Out of Bed No REE-([place]-St. Jeor-confined to bed) 1257.444 Kcal/Kg value to use for calculation 32 Approximate Energy Requirements Using 1742 kcal/Kg Additional Notes PRO: 54-65g/day (1-1.2g/kg BW/ day) Fluid Needs: 1mL/kcal or per MD Nutrition Intervention Change Diet Order: Continue Goal #1 Pt will continue to tolerate PO intake Goal #2 Pt will meet 75% of kcal/PRO needs via PO intake Anticipated Discharge Needs: Consistent CHO diet Follow-Up By: 03/29/22 Additional Comments monitor food tolerance, %PO intake of meals, BM
[2022-03-28] MEDS: INSULIN LISPRO 100 UNIT/ML SUB-Q SCH ×3 (03:25→12:46)
[2022-03-28 06:01] LABS: Hematocrit 33.6 % (30.3-42.9); Hemoglobin 11.3 gm/dl (10.1-14.3); Mean Corpuscular HGB Conc 34 % (30-34); Mean Corpuscular Volume 79 fl (79-97); Platelet Count 185 K/mm3 (140-440); Red Blood Count 4.25 M/mm3 (3.65-5.03)
[2022-03-28 06:17] LABS: Calcium 8.8 mg/dL (8.4-10.2)
[2022-03-28 09:27] VITALS: BP 133/64
[2022-03-28] MEDS: carvediloL 12.5 MG TAB PO SCH (09:33)
[2022-03-28] MEDS: DULoxetine 30 MG CAP PO SCH (09:33)
[2022-03-28] MEDS: FERROUS SULFATE 325 MG TAB PO SCH (09:33)
[2022-03-28] MEDS: ASPIRIN 81 MG TAB CHEW PO SCH (09:33)
[2022-03-28] MEDS: HEPARIN 5,000 UNIT/1 ML VIAL SUB-Q SCH (09:34)
[2022-03-28] MEDS: FAMOTIDINE 20 MG/2 ML INJ IV SCH (09:34)
--- NOTE | 2022-03-28 09:39 | Progress Note ---
Assessment and Plan Assessment and plan: This is a 81-year-old female with diabetes, HTN, depression who presents to the emergency department with via EMS on 03/25 with concerns of possible stroke with altered mental status. Patient's last known well at her baseline was 03/24 around 9 PM when she was talking to her son. Apparently around 4:45 PM there was forced entry by EMS into her home when she was found on the ground unresponsive and her blood glucose was 500. In the emergency department patient was awake but unresponsive with a right-sided gaze preference. Teleneurology was consulted who assessed initial NIHSS of 31 and stated patient is a possible candidate for tPA if CT angio of head and neck were abnormal and if LVO was found patient will need to be transferred for a thrombectomy. Initial CT head showed no acute intracranial abnormality, extensive microvascular angiopathy and possible normal pressure hydrocephalus, CTA head showed no large vessel occlusion and CTA neck showed no significant stenosis involving the cervical carotid or vertebral arteries. Lab work in the emergency department also revealed leukocytosis, acute kidney injury, high anion gap Metabolic acidosis, hyperglycemia, hypomagnesemia. Patient was admitted to the hospitalist service with DKA possible CVA. Hospital course to date: 03/26: Patient remains on insulin drip as anion gap is now closed, given LR bolus this afternoon. MRI brain completed. RN to perform straight cath to obtain UA/UC. Instructed to leave Sidhu catheter in place as hospitals are of straight cath kits if urine output greater than 300 mL. 03/27: Anion gap closed, transition to SSI and long-acting insulin. Started on a pured CC diet after passing bedside swallow evaluation. This afternoon patient was somnolent, only responding to sternal rub with minimal moaning. She was also hypotensive with maps in the 50s and 60s. 1 L normal saline bolus given. Blood pressure recovered and patient became more arousable. After bolus patient was able to be aroused and was oriented x4. Patient still has sleepiness however she is arousable to voice. Patient was to be discharged home but we will hold discharge and transfer her to the floor. 03/28: Assessment and plan: This is a 81-year-old female with DM admitted with DKA, BOYD, leukocytosis, hypomagnesemia, r/o CVA Neuro: Ruled out CVA, h/o depression, peripheral neuropathy -Per Teleneurology NIHSS of 31 -Initial CT head showed no acute intracranial abnormality, extensive microvascular angiopathy and possible normal pressure hydrocephalus -CTA head showed no large vessel occlusion -CTA neck showed no significant stenosis involving the cervical carotid or vertebral arteries. -Neurology consulted, appreciate recommendations -Aspirin, Lipitor -Lipid panel noted -Maintain normothermia, euglycemia -Echocardiogram with bubble study pending -MRI brain with cerebral atrophy, no CVA -PT/OT/ST consulted -Permissive hypertension for 24 hours -Restarted home Cymbalta -Restarted home gabapentin however given more somnolence/lethargy will withhold -CT head obtained shows no acute intracranial normality Cardiac: h/o HTN, HLD -Blood pressure monitoring per protocol -Home antihypertensive regimen: Coreg, hydralazine, amlodipine -Echocardiogram pending -Resume home antihypertensive regimen and adjust as needed if needed -restarted coreg at lower dose Respiratory: NAD -Pulmonary hygiene -Supplemental oxygen as needed -SPO2 monitoring GI: NAD -PPI -CC cardiac diet -24 hours +669 ml : Acute kidney injury likely secondary to vasomotor nephropathy, hypomagnesemia, metabolic acidosis -Monitor intake and output -Renally dose medications -Avoid nephrotoxic medications -Replace Mag -Trend BMP ID: NAD -Infectious disease consulted, appreciate recommendation -f/u blood culture -UA and UC pending -Monitor WBC and temperature curve Endo: DKA (resolved), h/o DM -s/p Insulin gtt -SSI and long acting insulin -Hbg A1C 13 -Avoid hypoglycemia Heme: Leukocytosis -CXR without acute abnormality, urinalysis normal, no fevers -Trend CBC -Transfuse hemoglobin less than 7 -SCDs to BLE while in bed Hospitalist Physical - Constitutional Vitals: Temp Pulse Resp BP Pulse Ox 98.3 F 62 16 136/71 96 03/28/22 04:31 03/28/22 04:31 03/28/22 04:31 03/28/22 04:31 03/28/22 04:55 General appearance: Present: no acute distress, well-nourished HEART Score - HEART Score Troponin: Troponin T 0.068 ng/mL (0.00-0.029) H 03/25/22 18:24 Results - Labs CBC & Chem 7: 03/28/22 05:28 03/28/22 05:28 Labs: Laboratory Last Values WBC 9.1 K/mm3 (4.5-11.0) 03/28/22 05:28 RBC 4.25 M/mm3 (3.65-5.03) 03/28/22 05:28 Hgb 11.3 gm/dl (10.1-14.3) 03/28/22 05:28 Hct 33.6 % (30.3-42.9) 03/28/22 05:28 MCV 79 fl (79-97) 03/28/22 05:28 MCH 27 pg (28-32) L 03/28/22 05:28 MCHC 34 % (30-34) 03/28/22 05:28 RDW 18.0 % (13.2-15.2) H 03/28/22 05:28 Plt Count 185 K/mm3 (140-440) 03/28/22 05:28 Lymph % (Auto) 5.9 % (13.4-35.0) L 03/25/22 18:24 [place] % (Auto) 3.5 % (0.0-7.3) 03/25/22 18:24 Eos % (Auto) 0.0 % (0.0-4.3) 03/25/22 18:24 Baso % (Auto) 0.8 % (0.0-1.8) 03/25/22 18:24 Lymph # (Auto) 0.8 K/mm3 (1.2-5.4) L 03/25/22 18:24 [place] # (Auto) 0.5 K/mm3 (0.0-0.8) 03/25/22 18:24 Eos # (Auto) 0.0 K/mm3 (0.0-0.4) 03/25/22 18:24 Baso # (Auto) 0.1 K/mm3 (0.0-0.1) 03/25/22 18:24 Seg Neutrophils % 89.8 % (40.0-70.0) H 03/25/22 18:24 Seg Neutrophils # 12.6 K/mm3 (1.8-7.7) H 03/25/22 18:24 PT 14.1 Sec. (12.2-14.9) 03/25/22 18:24 INR 0.98 (0.87-1.13) 03/25/22 18:24 APTT 24.7 Sec. (24.2-36.6) 03/25/22 18:24 Thrombin Time 16.8 Sec. (15.1-19.6) 03/25/22 18:24 VBG pH 7.276 (7.320-7.420) L 03/25/22 20:02 Sodium 140 mmol/L (137-145) 03/28/22 05:28 Potassium 3.2 mmol/L (3.6-5.0) L D 03/28/22 05:28 Chloride 108.5 mmol/L (98-107) H 03/28/22 05:28 Carbon Dioxide 20 mmol/L (22-30) L 03/28/22 05:28 Anion Gap 15 mmol/L 03/28/22 05:28 BUN 15 mg/dL (7-17) 03/28/22 05:28 Creatinine 1.3 mg/dL (0.6-1.2) H 03/28/22 05:28 Estimated GFR 48 ml/min 03/28/22 05:28 BUN/Creatinine Ratio 12 % 03/28/22 05:28 Glucose 217 mg/dL (65-100) H 03/28/22 05:28 POC Glucose 213 mg/dL (70-105) H 03/28/22 07:28 Hemoglobin A1c 13.0 % (4-6) H 03/27/22 05:22 Ketones Quantitative Moderate (Negative) 03/25/22 20:02 Calcium 8.8 mg/dL (8.4-10.2) 03/28/22 05:28 Phosphorus 3.30 mg/dL (2.5-4.5) D 03/27/22 05:22 Magnesium 1.50 mg/dL (1.7-2.3) L 03/28/22 05:28 Total Bilirubin 0.80 mg/dL (0.1-1.2) 03/25/22 18:24 AST 32 units/L (5-40) 03/25/22 18:24 ALT 17 units/L (7-56) 03/25/22 18:24 Alkaline Phosphatase 72 units/L (35-129) 03/25/22 18:24 Ammonia 12.0 umol/L (25-60) L 03/25/22 18:24 Total Creatine Kinase 331 units/L (30-135) H 03/25/22 18:24 CK-MB (CK-2) 4.4 ng/mL (0.0-4.0) H 03/25/22 18:24 CK-MB (CK-2) Rel Index 1.3 (0-4) 03/25/22 18:24 Troponin T 0.068 ng/mL (0.00-0.029) H 03/25/22 18:24 Total Protein 7.6 g/dL (6.3-8.2) 03/25/22 18:24 Albumin 4.6 g/dL (3.9-5) 03/25/22 18:24 Albumin/Globulin Ratio 1.5 % 03/25/22 18:24 Triglycerides 190 mg/dL (2-149) H 03/25/22 18:24 Cholesterol 189 mg/dL (50-199) 03/25/22 18:24 LDL Cholesterol Direct 79 mg/dL (50-130) 03/25/22 18:24 HDL Cholesterol 94 mg/dL (40-59) H 03/25/22 18:24 Cholesterol/HDL Ratio 2.01 % 03/25/22 18:24 Urine Color Yellow (Yellow) 03/26/22 16:40 Urine Turbidity Clear (Clear) 03/26/22 16:40 Urine pH 5.0 (5.0-7.0) 03/26/22 16:40 Ur Specific [place] 1.027 (1.003-1.030) 03/26/22 16:40 Urine Protein 100 mg/dl mg/dL (Negative) 03/26/22 16:40 Urine Glucose (UA) >=500 mg/dL (Negative) 03/26/22 16:40 Urine Ketones Tr mg/dL (Negative) 03/26/22 16:40 Urine Blood Mod (Negative) 03/26/22 16:40 Urine Nitrite Neg (Negative) 03/26/22 16:40 Urine Bilirubin Neg (Negative) 03/26/22 16:40 Urine Urobilinogen < 2.0 mg/dL (<2.0) 03/26/22 16:40 Ur Leukocyte Esterase Neg (Negative) 03/26/22 16:40 Urine WBC (Auto) 2.0 /HPF (0.0-6.0) 03/26/22 16:40 Urine RBC (Auto) 2.0 /HPF (0.0-6.0) 03/26/22 16:40 U Epithel Cells (Auto) 1.0 /HPF (0-13.0) 03/26/22 16:40 Granular Casts 4 /LPF 03/26/22 16:40 Urine Mucus Few /HPF 03/26/22 16:40 Plasma/Serum Alcohol < 0.01 % (0-0.07) 03/25/22 18:24 Blood Type A POSITIVE 03/25/22 18:24 Antibody Screen Negative 03/25/22 18:24 Sidhu/IV: Voiding Method Indwelling Catheter Active Medications - Current Medications Current Medications: Generic Name Dose Route Start Last Admin Trade Name Freq PRN Reason Stop Dose Admin Acetaminophen 650 mg 03/25/22 23:01 Acetaminophen 325 Mg Tab PO Q4H PRN Pain MILD(1-3)/Fever >100.5/GUTIERREZ Albuterol 2.5 mg 03/25/22 23:01 Albuterol 2.5 Mg/3 Ml Nebu IH Q3HRT PRN Shortness Of Breath Aspirin 81 mg 03/27/22 11:30 03/27/22 11:28 Aspirin 81 Mg Tab Chew PO Not Given QDAY YUNIEL Atorvastatin Calcium 40 mg 03/26/22 22:00 03/27/22 22:47 Atorvastatin 40 Mg Tab PO 40 mg QHS YUNIEL Administration Carvedilol 12.5 mg 03/27/22 10:00 03/27/22 22:47 Carvedilol 12.5 Mg Tab PO 12.5 mg BID YUNIEL Administration Dextrose 50 ml 03/27/22 08:28 Dextrose 50% In Water (25gm) 50 Ml Syringe IV Q30MIN PRN Hypoglycemia Protocol Duloxetine HCl 30 mg 03/27/22 10:00 03/27/22 10:32 Duloxetine 30 Mg Cap PO 30 mg QDAY YUNIEL Administration Famotidine 20 mg 03/26/22 10:00 03/27/22 10:56 Famotidine 20 Mg/2 Ml Inj IV Not Given DAILY YUNIEL Ferrous Sulfate 325 mg 03/27/22 10:00 03/27/22 10:32 Ferrous Sulfate 325 Mg Tab PO 325 mg QDAY YUNIEL Administration Heparin Sodium (Porcine) 5,000 unit 03/26/22 10:00 03/27/22 22:47 Heparin 5,000 Unit/1 Ml Vial SUB-Q 5,000 unit Q12HR YUNIEL Administration Sodium Chloride 1,000 mls @ 150 mls/hr 03/25/22 23:45 Nacl 0.45% 1000 Ml IV DIRECT YUNIEL Insulin Glargine 20 units 03/27/22 11:30 03/27/22 12:01 Insulin Glargine 100 Units/Ml SUB-Q 20 units QAMDIAB YUNIEL Administration Insulin Human Lispro 0 unit 03/27/22 12:00 03/28/22 06:32 Insulin Lispro 100 Unit/Ml SUB-Q 3 unit Q6HR YUNIEL Administration Protocol Labetalol HCl 10 mg 03/26/22 17:02 03/26/22 18:15 Labetalol 20 Mg/4 Ml Inj IV 10 mg Q10MIN PRN Administration Hypertension Morphine Sulfate 2 mg 03/25/22 23:01 Morphine 2 Mg/1 Ml Inj IV Q4H PRN Pain, Moderate (4-6) Morphine Sulfate 4 mg 03/25/22 23:01 Morphine 4 Mg/1 Ml Inj IV Q4H PRN Pain , Severe (7-10) Ondansetron HCl 4 mg 03/25/22 23:01 Ondansetron 4 Mg/2 Ml Inj IV Q8H PRN Nausea And Vomiting Potassium Chloride 40 meq 03/28/22 09:26 Potassium Chloride Er 20 Meq Tab PO 03/28/22 09:27 ONCE ONE Sodium Chloride 10 ml 03/26/22 10:00 03/28/22 03:26 Sodium Chloride 0.9% 10 Ml Flush Syringe IV Not Given BID YUNIEL Sodium Chloride 10 ml 03/25/22 23:01 Sodium Chloride 0.9% 10 Ml Flush Syringe IV PRN PRN LINE FLUSH Nutrition/Malnutrition Assess - Dietary Evaluation Nutrition/Malnutrition Findings: Nutrition Notes Start: 03/26/22 15:57 Freq: Status: Active Protocol: Document 03/27/22 12:28 RS (Rec: 03/27/22 12:52 RS [id number]) Nutrition Notes Need for Assessment generated from: MD Order Initial or Follow up Assessment Current Diagnosis CKD(stage I-IV),Diabetes, Hypertension,Stroke Other Pertinent Diagnosis Metabolic Encephalopathy, DKA, Elevated Troponin. Current Diet Consistent CHO Labs/Tests Cl: 110 Co2:17 Cr:1.3 M.5 Pertinent Medications Reviewed Height 5 ft 7 in Weight 54.431 kg [place] Body Weight (kg) 61.36 BMI 18.8 Weight change and time frame BRIAN wt hx Weight Status Appropriate Subjective/Other Information MD consult to write/manage TF. Diet education innapropriate at this time d/t pt AMS. Per RN report, MD took pt off NPO status. Pt tolerating PO intake, currently recieving consistent CHO diet. Pt consumed 100% of breakfast tray. RD to reccomend to start TF at this time d/t tolerated PO intake> RD will provide Glucerna qd. Burn Absent Trauma Absent Current % PO Good (75-100%) Minimum of two criteria No #1 Nutrition Diagnosis Excessive carbohydrate intake Etiology DKA As Evidenced by Signs and Symptoms BG level of 500 upon admission , pt displays AMS Diagnosis Progress(for reassessment Resolved documentation) Is patient on ventilator? No Is Patient Ambulatory and/or Out of Bed No REE-([place]-[facility] Jeor-confined to bed) 1257.444 Kcal/Kg value to use for calculation 32 Approximate Energy Requirements Using 1742 kcal/Kg Additional Notes PRO: 54-65g/day (1-1.2g/kg BW/ day) Fluid Needs: 1mL/kcal or per MD Nutrition Intervention Change Diet Order: Continue Goal #1 Pt will continue to tolerate PO intake Goal #2 Pt will meet 75% of kcal/PRO needs via PO intake Anticipated Discharge Needs: Consistent CHO diet Follow-Up By: 03/29/22 Additional Comments monitor food tolerance, %PO intake of meals, BM
[2022-03-28] MEDS: INSULIN GLARGINE 100 UNITS/ML SUB-Q SCH (10:00)
[2022-03-28] MEDS ORDERED: POTASSIUM CHLORIDE ER 20 MEQ TAB PO ONE (10:00)
[2022-03-28] MEDS ORDERED: MAGNESIUM OXIDE 400 MG TAB PO SCH (10:00)
--- NOTE | 2022-03-28 11:00 | Progress Note ---
Assessment and Plan 81 y/o female with stroke and dKA 03/28/22: Pulm status stable, will sign off. 03/27/22: Transition to long acting insulin. Replace Mag. Bedside swallow, if passes feeds. MRI was negative. Transfer to floor. 1. Continue insulin therapy until Anion Gap is closed 2. Will keep NPO as well. Most likey will need dh if mental status does not improve. 3. No sedative therapy 4. BP control 5. neuro checks. 6. monitor renal function CCT 31 minutes. Subjective Date of service: 03/28/22 Interval history: Successful transfer out of the unit. No pulm issues. Objective - Constitutional Vitals: Vital Signs - 12hr 03/27/22 03/28/22 03/28/22 23:23 00:00 00:24 Temperature 97.4 F L 97.4 F L Pulse Rate 75 87 75 Pulse Rate [ 76 From Monitor] Respiratory 16 17 17 Rate Blood Pressure 143/75 Blood Pressure 143/75 [Left] O2 Sat by Pulse 100 98 100 Oximetry 03/28/22 03/28/22 03/28/22 04:00 04:31 04:55 Temperature 98.3 F Pulse Rate 78 62 Pulse Rate [ From Monitor] Respiratory 16 Rate Blood Pressure 136/71 Blood Pressure [Left] O2 Sat by Pulse 99 98 96 Oximetry 03/28/22 03/28/22 08:43 09:42 Temperature 97.7 F Pulse Rate 89 Pulse Rate [ From Monitor] Respiratory 18 Rate Blood Pressure 133/64 Blood Pressure [Left] O2 Sat by Pulse 98 6 L Oximetry - Labs CBC & Chem 7: 03/28/22 05:28 03/28/22 05:28 Labs: Abnormal lab results 03/27/22 03/27/22 03/27/22 Range/Units 05:22 13:15 23:29 MCH (28-32) pg RDW (13.2-15.2) % Potassium (3.6-5.0) mmol/L Chloride (98-107) mmol/L Carbon Dioxide (22-30) mmol/L Creatinine (0.6-1.2) mg/dL Glucose (65-100) mg/dL POC Glucose 193 H 184 H (70-105) mg/dL Hemoglobin A1c 13.0 H (4-6) % Magnesium (1.7-2.3) mg/dL 03/28/22 03/28/22 03/28/22 Range/Units 05:28 05:28 05:52 MCH 27 L (28-32) pg RDW 18.0 H (13.2-15.2) % Potassium 3.2 L D (3.6-5.0) mmol/L Chloride 108.5 H (98-107) mmol/L Carbon Dioxide 20 L (22-30) mmol/L Creatinine 1.3 H (0.6-1.2) mg/dL Glucose 217 H (65-100) mg/dL POC Glucose 214 H (70-105) mg/dL Hemoglobin A1c (4-6) % Magnesium 1.50 L (1.7-2.3) mg/dL 03/28/22 Range/Units 07:28 MCH (28-32) pg RDW (13.2-15.2) % Potassium (3.6-5.0) mmol/L Chloride (98-107) mmol/L Carbon Dioxide (22-30) mmol/L Creatinine (0.6-1.2) mg/dL Glucose (65-100) mg/dL POC Glucose 213 H (70-105) mg/dL Hemoglobin A1c (4-6) % Magnesium (1.7-2.3) mg/dL Medications & Allergies - Medications Allergies/Adverse Reactions: Allergies Penicillins Allergy (Verified 03/25/22 18:41) Anaphylaxis Home Medications: Home Medications Medication Instructions Recorded Confirmed Last Taken Type AtorvaSTATin [Lipitor] 10 mg PO QHS 03/26/22 03/26/22 Unknown History DULoxetine [Cymbalta] 30 mg PO QDAY 03/26/22 03/26/22 Unknown History Estrogens, Conjugated [Premarin] 0.9 mg PO QDAY 03/26/22 03/26/22 Unknown History Ferrous Sulfate [Feosol] 325 mg PO QDAY 03/26/22 03/26/22 Unknown History Gabapentin [Neurontin] 100 mg PO QDAY 03/26/22 03/26/22 Unknown History Insulin Glargine [Lantus VIAL] 10 unit SUB-Q QHS 03/26/22 03/26/22 Unknown Hist ory amLODIPine [Norvasc] 5 mg PO DAILY 03/26/22 03/26/22 Unknown History carvediloL [Coreg] 25 mg PO BID 03/26/22 03/26/22 Unknown History hydrALAZINE [Apresoline] 50 mg PO BID 03/26/22 03/26/22 Unknown History traMADoL [Ultram] 50 mg PO QDAY 03/26/22 03/26/22 Unknown History Active Medications: Generic Name Dose Route Start Last Admin Trade Name Freq PRN Reason Stop Dose Admin Acetaminophen 650 mg 03/25/22 23:01 Acetaminophen 325 Mg Tab PO Q4H PRN Pain MILD(1-3)/Fever >100.5/GUTIERREZ Albuterol 2.5 mg 03/25/22 23:01 Albuterol 2.5 Mg/3 Ml Nebu IH Q3HRT PRN Shortness Of Breath Aspirin 81 mg 03/27/22 11:30 03/28/22 09:33 Aspirin 81 Mg Tab Chew PO 81 mg QDAY YUNIEL Administration Atorvastatin Calcium 40 mg 03/26/22 22:00 03/27/22 22:47 Atorvastatin 40 Mg Tab PO 40 mg QHS YUNIEL Administration Carvedilol 12.5 mg 03/27/22 10:00 03/28/22 09:33 Carvedilol 12.5 Mg Tab PO 12.5 mg BID YUNIEL Administration Dextrose 50 ml 03/27/22 08:28 Dextrose 50% In Water (25gm) 50 Ml Syringe IV Q30MIN PRN Hypoglycemia Protocol Duloxetine HCl 30 mg 03/27/22 10:00 03/28/22 09:33 Duloxetine 30 Mg Cap PO 30 mg QDAY YUNIEL Administration Famotidine 20 mg 03/26/22 10:00 03/28/22 09:34 Famotidine 20 Mg/2 Ml Inj IV 20 mg DAILY YUNIEL Administration Ferrous Sulfate 325 mg 03/27/22 10:00 03/28/22 09:33 Ferrous Sulfate 325 Mg Tab PO 325 mg QDAY YUNIEL Administration Heparin Sodium (Porcine) 5,000 unit 03/26/22 10:00 03/28/22 09:34 Heparin 5,000 Unit/1 Ml Vial SUB-Q 5,000 unit Q12HR YUNIEL Administration Sodium Chloride 1,000 mls @ 150 mls/hr 03/25/22 23:45 Nacl 0.45% 1000 Ml IV DIRECT YUNIEL Insulin Glargine 20 units 03/27/22 11:30 03/28/22 10:00 Insulin Glargine 100 Units/Ml SUB-Q 20 units QAMDIAB YUNIEL Administration Insulin Human Lispro 0 unit 03/27/22 12:00 03/28/22 06:32 Insulin Lispro 100 Unit/Ml SUB-Q 3 unit Q6HR YUNIEL Administration Protocol Labetalol HCl 10 mg 03/26/22 17:02 03/26/22 18:15 Labetalol 20 Mg/4 Ml Inj IV 10 mg Q10MIN PRN Administration Hypertension Magnesium Oxide 400 mg 03/28/22 10:00 Magnesium Oxide 400 Mg Tab PO QDAY [facility] Morphine Sulfate 2 mg 03/25/22 23:01 Morphine 2 Mg/1 Ml Inj IV Q4H PRN Pain, Moderate (4-6) Morphine Sulfate 4 mg 03/25/22 23:01 Morphine 4 Mg/1 Ml Inj IV Q4H PRN Pain , Severe (7-10) Ondansetron HCl 4 mg 03/25/22 23:01 Ondansetron 4 Mg/2 Ml Inj IV Q8H PRN Nausea And Vomiting Sodium Chloride 10 ml 03/26/22 10:00 03/28/22 09:34 Sodium Chloride 0.9% 10 Ml Flush Syringe IV 10 ml BID YUNIEL Administration Sodium Chloride 10 ml 03/25/22 23:01 Sodium Chloride 0.9% 10 Ml Flush Syringe IV PRN PRN LINE FLUSH HEART Score - HEART Score Troponin: Troponin T 0.068 ng/mL (0.00-0.029) H 03/25/22 18:24
--- NOTE | 2022-03-28 12:14 | Discharge Summary ---
Providers - Providers Date of Admission: 03/25/22 23:01 Attending physician: BINTA CABRERA MD 03/25/22 23:02 Occupational Therapy Evaluate and Treat [CONS] Routine Comment: Reason For Exam: Neuro deficits Physical Therapy Evaluation and Treat [CONS] Routine Comment: Reason For Exam: Neuro deficits 03/27/22 08:30 Consult to Dietitian/Nutrition [CONS] Routine Physician Instructions: Reason For Exam: Reason for Consult: Write/Manage Tube Feeding 03/27/22 11:30 Speech Therapy Evaluation and Treat [CONS] Routine Reason For Exam: Stroke Hospitalization Reason for admission: Acute metabolic encephalopathy Condition: Serious Hospital course: This is a 81-year-old female with diabetes, HTN, depression who presents to the emergency department with via EMS on 03/25 with concerns of possible stroke with altered mental status. Patient's last known well at her baseline was 03/24 around 9 PM when she was talking to her son. Apparently around 4:45 PM there was forced entry by EMS into her home when she was found on the ground unresponsive and her blood glucose was 500. In the emergency department patient was awake but unresponsive with a right-sided gaze preference. Teleneurology was consulted who assessed initial NIHSS of 31 and stated patient is a possible candidate for tPA if CT angio of head and neck were abnormal and if LVO was found patient will need to be transferred for a thrombectomy. Initial CT head showed no acute intracranial abnormality, extensive microvascular angiopathy and possible normal pressure hydrocephalus, CTA head showed no large vessel occlusion and CTA neck showed no significant stenosis involving the cervical carotid or vertebral arteries. Lab work in the emergency department also revealed leukocytosis, acute kidney injury, high anion gap Metabolic acidosis, hyperglycemia, hypomagnesemia. Patient was admitted to the hospitalist service with DKA possible CVA. Hospital course to date: 03/26: Patient remains on insulin drip as anion gap is now closed, given LR bolus this afternoon. MRI brain completed. RN to perform straight cath to obtain UA/UC. Instructed to leave Sidhu catheter in place as hospitals are of straight cath kits if urine output greater than 300 mL. 03/27: Anion gap closed, transition to SSI and long-acting insulin. Started on a pured CC diet after passing bedside swallow evaluation. This afternoon patient was somnolent, only responding to sternal rub with minimal moaning. She was also hypotensive with maps in the 50s and 60s. 1 L normal saline bolus given. Blood pressure recovered and patient became more arousable. After bolus patient was able to be aroused and was oriented x4. Patient still has sleepiness however she is arousable to voice. Patient was to be discharged home but we will hold discharge and transfer her to the floor. 03/28: Cleared for discharge. Patient is AOx4. Will go home with son. Also advised to avoid gabapentin as this is very sedating. Advised to continue home insulin regimen, however advised to increase home Lantus to 20 units subcu every morning. Prescription for Lantus Solostar sent to patient pharmacy [facility]. Assessment and plan: This is a 81-year-old female with DM admitted with DKA, BOYD, leukocytosis, hypomagnesemia, r/o CVA Neuro: Ruled out CVA, h/o depression, peripheral neuropathy, acute metabolic encephalopathy -Per Teleneurology NIHSS of 31 -Initial CT head showed no acute intracranial abnormality, extensive microvascular angiopathy and possible normal pressure hydrocephalus -CTA head showed no large vessel occlusion -CTA neck showed no significant stenosis involving the cervical carotid or vertebral arteries. -Neurology consulted, appreciate recommendations -Aspirin, Lipitor -Lipid panel noted -Maintain normothermia, euglycemia -Echocardiogram with bubble study pending -MRI brain with cerebral atrophy, no CVA -PT/OT/ST consulted -Permissive hypertension for 24 hours -Restarted home Cymbalta -Restarted home gabapentin however given more somnolence/lethargy will withhold -CT head obtained shows no acute intracranial normality, encephalopathy likely related to gabapentin. Discontinue Cardiac: h/o HTN, HLD -Blood pressure monitoring per protocol -Home antihypertensive regimen: Coreg, hydralazine, amlodipine -Echocardiogram pending -Resume home antihypertensive regimen and adjust as needed if needed -restarted coreg at lower dose Respiratory: NAD -Pulmonary hygiene -Supplemental oxygen as needed -SPO2 monitoring GI: NAD -PPI -CC cardiac diet -24 hours +669 ml : Acute kidney injury likely secondary to vasomotor nephropathy, hypomagnesemia, metabolic acidosis -Monitor intake and output -Renally dose medications -Avoid nephrotoxic medications -Replace Mag -Trend BMP ID: NAD -Infectious disease consulted, appreciate recommendation -f/u blood culture -UA and UC pending -Monitor WBC and temperature curve Endo: DKA (resolved), h/o DM -s/p Insulin gtt -SSI and long acting insulin -Hbg A1C 13 -Avoid hypoglycemia Heme: Leukocytosis -CXR without acute abnormality, urinalysis normal, no fevers -Trend CBC -Transfuse hemoglobin less than 7 -SCDs to BLE while in bed Disposition: 01 HOME / SELF CARE / HOMELESS Final Discharge Diagnosis (Prints w/discharge instructions): Diabetic ke toacidosis, acute kidney injury acute metabolic encephalopathy Time spent for discharge: 35 Core Measure Documentation - Palliative Care Palliative Care/ Comfort Measures: Not Applicable - Core Measures Any of the following diagnoses?: none Exam - Physical Exam Narrative exam: Physical Exam: VITAL SIGNS: Reviewed. GENERAL: The patient appears normally developed, Vital signs as documented. HEAD: No signs of head trauma. EYES: Pupils are equal. Extraocular motions intact. EARS: Hearing grossly intact. MOUTH: Oropharynx is normal. NECK: No adenopathy, no JVD. CHEST: Chest with clear breath sounds bilaterally. No wheezes, rales, or rhonchi. CARDIAC: Regular rate and rhythm. S1 and S2, without murmurs, gallops, or rubs. VASCULAR: No Edema. Peripheral pulses normal and equal in all extremities. ABDOMEN: Soft, non tender and non distended. No rebound or guarding, and no masses palpated. Bowel Sounds normal. MUSCULOSKELETAL: Good range of motion of all major joints. Extremities without clubbing, cyanosis or edema. NEUROLOGIC EXAM: Alert and oriented x 4. no focal sensory or strength deficits. PSYCHIATRIC: Mood normal. SKIN: detail exam as documented in skin assessment - Constitutional Vitals: Temp Pulse Resp BP Pulse Ox 97.7 F 89 18 133/64 6 L 03/28/22 08:43 03/28/22 08:43 03/28/22 08:43 03/28/22 08:43 03/28/22 09:42 Plan Follow up with: RIC SOLIS [Other] - 3-5 Days Prescriptions: Insulin Glargine,Hum.rec.anlog [Lantus Solostar] 20 unit SQ QAM 30 Days #1 box
--- NOTE | 2022-03-28 15:09 | Electrocardiograph Report ---
[facility] Test Date: 2022-03-25 Test Time: 19:28:58 Pat Name: KIRBY CASTELLANO Department: Room: A474 Gender: F Power Saw Operator: NURSE : 1940 Requested By: ELIZABETH ULRICH Order Number: [id number] Reading MD: Bernadette Singh Measurements Intervals [place] Rate: 123 P: 256 [place]: 201 QRS: 29 QRSD: 64 T: 2 QT: 311 QTc: 443 Interpretive Statements Sinus or ectopic atrial tachycardia Nonspecific repol abnormality, diffuse leads No previous ECG available for comparison Electronically Signed On 03-28-2022 15:08:48 EDT by Bernadette Singh
== END 2022-03-28 16:23 | disposition home or self-care (01) | DRG 637 ==
LOC: ED 18:07 → CC1 23:01 → 4A 03-27 21:23
PROVIDERS: ADMIT Hospitalist; ATTEND Internal Medicine
DX: E10.10 Type 1 diabetes mellitus with ketoacidosis without coma (principal); G93.41 Metabolic encephalopathy; N17.0 Acute kidney failure with tubular necrosis; R77.8 Other specified abnormalities of plasma proteins; I10 Essential (primary) hypertension; E78.5 Hyperlipidemia, unspecified; E10.40 Type 1 diabetes mellitus with diabetic neuropathy, unspecified; F32.9 Major depressive disorder, single episode, unspecified; E87.6 Hypokalemia; E83.39 Other disorders of phosphorus metabolism; D72.829 Elevated white blood cell count, unspecified; E83.42 Hypomagnesemia; Z88.0 Allergy status to penicillin; Z83.3 Family history of diabetes mellitus
CPT/HCPCS: 36415; 70450; 70496; 70498; 70551; 71045; 80048; 80053; 80061; 80320; 81001; 82010; 82140; 82550; 82553; 82805; 82962; 83036; 83735; 84100; 84484; 85025; 85027; 85610; 85670; 85730; 86850; 86900; 86901; 93005; 93306; 94640; G0378; J3480; J3490; Q9967; C8929; G0480; J1644; J1815; J1953; J3475; J7030; J7040; J7120